=== PATIENT | female | born 1995 | race Caucasian/White ===

== ENCOUNTER 2019-06-08 21:49 | Emergency (ER) | payer OTHER, SELFPAY ==
--- NOTE | ~2019-06-08 | CT_ITS ---
EXAMINATION: CT cervical spine wo con DATE: 06/09/2019 01:52 INDICATION: Neck pain TECHNIQUE: Computed tomography (CT) of the cervical spine was performed without intravenous contrast. The dose-length product (DLP) was 449.68 mGy-cm. Automated exposure control and iterative reconstruc tion technique were employed. COMPARISON: None FINDINGS: There is reversal of the cervical spine which can be positional or due to muscular spasm. T here is no fracture, dislocation, or subluxation. The vertebral body heights, alignment, and interver tebral disc spaces are normal. The paravertebral soft tissues are unremarkable. IMPRESSION: 1. No acute osseous abnormality. Reviewed, dictated and finalized at location A. 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
[2019-06-08 22:05] VITALS: BP 121/75; PULSE 99; RESP 19; TEMP 36.9; O2SAT 100
[2019-06-09 00:50] VITALS: BP 104/65; PULSE 83; RESP 18; O2SAT 100
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
[2019-06-09 02:13] VITALS: BP 106/85; PULSE 76; RESP 12; TEMP 36.8; O2SAT 100
== END 2019-06-09 02:14 | disposition home or self-care (01) ==
PROVIDERS: Emergency Provider Emergency Medicine
DX: S16.1XXA Strain of muscle, fascia and tendon at neck level, initial encounter (principal); K21.9 Gastro-esophageal reflux disease without esophagitis; V47.5XXA Car driver injured in collision with fixed or stationary object in traffic accident, initial encounter
CPT/HCPCS: 72125; 81025; 99284

== ENCOUNTER 2020-07-16 17:18 | Emergency (ER) | payer OTHER, SELFPAY ==
[2020-07-16 17:27] VITALS: BP 126/70; PULSE 112; RESP 16; TEMP 36.8; O2SAT 100
--- NOTE | 2020-07-16 17:28 | ED.WOUNDLAC ---
HPI - Wound/Laceration General Chief Complaint: Wound/Laceration Stated Complaint: laceration to thumb Time Seen by Provider: 07/16/20 17:28 Source: patient and RN notes reviewed Mode of arrival: ambulatory Limitations: no limitations History of Present Illness HPI narrative: 25-year-old female presents to the [facility] with a laceration to the thumb. States that she was using a straight blade when it slipped from after cutting boxes and went to the lateral aspect of left thumb. Bleeding is controlled. Currently washed and dressed. States every time she bends it starts to bleed again. At the mid joints of the thumb. Patient states she thinks she is up-to-date on immunizations including Tdap. Related Data Allergies Allergy/AdvReac Type Severity Reaction Status Date / Time No Known Allergies Allergy Unverified 07/16/20 17:27 Review of Systems Review of Systems: Narrative: CONSTITUTIONAL: Denies fever, chills, or sweats. CARDIOVASCULAR: Denies chest pain, palpitations, or edema. RESPIRATORY: Denies cough or dyspnea. SKIN: Denies rash or itching. Half centimeter laceration lateral aspect left thumb, bleeding controlled. No signs of infection. Happened a couple hours prior to arrival. MUSCULOSKELETAL: Denies back pain, joint pain, or myalgia. NEUROLOGIC: Denies headache, numbness, or weakness. PSYCHIATRIC: Denies anxiety or depression. All other systems reviewed are negative, except as documented in HPI. [facility] Past Medical History Medical History (Updated 07/17/20 @ 00:01 by Kenzie Neal) Bronchitis GERD (gastroesophageal reflux disease) Surgical History Surgical History No significant past surgical history Social History Social History Smoking status: Never smoker Comments At the time of my signature, I reviewed and agree with the nursing past medical, surgical, social, and family history. There is no relevant family history pertinent to the patient complaint. Exam Narrative: Exam Narrative: GENERAL: This is a well-nourished, well-developed patient, in no apparent distress. HEAD: normocephalic, atraumatic. EYES: PERRL. EARS: External ears normal CARDIOVASCULAR: Regular rate and rhythm without murmurs, gallops, or rubs. RESPIRATORY: Clear to auscultation. Breath sounds equal bilaterally. No wheezes, rales, or rhonchi. SKIN: warm, intact with no suspicious lesions or rash, good texture and turgor. 2 and half centimeter laceration lateral aspect left thumb, lateral aspect of joint. Opens with movement and will start bleeding. NEURO: awake, alert, and oriented to person, place and time. There were no obvious focal neurologic abnormalities. EXTREMITIES: No joint tenderness, effusion, or edema noted. No calf tenderness. Negative Homans sign bilaterally. BACK: Nontender without deformity. No CVA tenderness. Course Course Emergency Course: Discussion with patient in regards to closure. If anywhere else on the skin and not over the joint, opens with movements would consider surgical glue or Steri-Strips however with movement patient wound opens starts to bleed a little bit. Vital Signs Vital signs: Vital Signs Temperature 98.2 F 07/16/20 17:27 Pulse Rate 112 H 07/16/20 17:27 Respiratory Rate 16 07/16/20 17:27 Blood Pressure 126/70 07/16/20 17:27 Pulse Oximetry 100 07/16/20 17:27 Temperature 98.2 F 07/16/20 17:27 Pulse Rate 112 H 07/16/20 17:27 Respiratory Rate 16 07/16/20 17:27 Blood Pressure 126/70 07/16/20 17:27 Pulse Oximetry 100 07/16/20 17:27 Reviewed Procedures Laceration Laceration 1: Date: 07/16/20 Time: 18:45 Site: hand Side (If applicable): left Size (cm): 2 Description: linear and clean Depth: simple, single layer Local Anesthetic: lidocaine 1% Amount of anesthesia used (mL): 1.5 Pre-repair: wou
== END 2020-07-16 18:02 | disposition home or self-care (01) ==
PROVIDERS: Emergency Provider Nurse Practitioner
DX: S61.012A Laceration without foreign body of left thumb without damage to nail, initial encounter (principal); W26.8XXA Contact with other sharp object(s), not elsewhere classified, initial encounter; K21.9 Gastro-esophageal reflux disease without esophagitis
CPT/HCPCS: 12001; 99212; G0463

== ENCOUNTER 2020-07-28 13:26 | Emergency (ER) | payer OTHER, SELFPAY ==
--- NOTE | 2020-07-28 13:37 | ED.SKABFB ---
HPI - Skin/Abscess/Foreign Bdy General Chief complaint: Skin/Abscess/Foreign Body Stated complaint: stitches removal Time Seen by Provider: 07/28/20 13:38 Source: patient Mode of arrival: ambulatory Limitations: no limitations History of Present Illness HPI narrative: Yasemin Ortiz is a 25 yo female comes to [facility] for removal of 2 sutures from left that replaced her 12 days ago Related Data Home Medications Medication Instructions Recorded Confirmed No Home Medications 07/28/20 07/28/20 Allergies Allergy/AdvReac Type Severity Reaction Status Date / Time No Known Allergies Allergy Unverified 07/16/20 17:27 Review of Systems Review of Systems: Narrative: CONSTITUTIONAL: Denies fever, chills, sweats. EYES: Denies visual changes, redness, discharge. ENT: Denies rhinorrhea, congestion, sore throat, otalgia. CARDIOVASCULAR: Denies chest pain, palpitations, edema. RESPIRATORY: Denies dyspnea, wheezing, cough GASTROINTESTINAL: Denies abdominal pain, nausea, vomiting, diarrhea. GENITOURINARY: Denies dysuria, hematuria, abnormal discharge SKIN: Denies rash or itching. NEUROLOGIC: Denies numbness, or focal weakness. PSYCHIATRIC: Denies anxiety or depression. PMFSH Past Medical History Medical History Bronchitis GERD (gastroesophageal reflux disease) Surgical History Surgical History No significant past surgical history Social History Social History Smoking status: Never smoker Comments At time of signature, I agree with nursing past medical, surgical, social and family history. There is no relevant family history pertinent to the presenting complaint. Exam Narrative: Exam Narrative: GENERAL: This is a well-nourished, well-developed patient, in mild distress. HEAD: normocephalic, atraumatic. EYES: . Sclera clear/white. Vision is grossly intact. EARS: External ears normal. Hearing grossly intact. NOSE: External nose normal without nasal discharge, nares without redness, no rhinorrhea. THROAT: Mucous membranes moist, NECK: Neck supple, non-tender CARDIOVASCULAR: Regular rate and rhythm without murmurs, gallops, or rubs. RESPIRATORY: Clear to auscultation. Breath sounds equal bilaterally. No wheezes, rales, or rhonchi. GASTROINTESTINAL: Abdomen soft, SKIN: warm, intact with no suspicious lesions or rash, good texture and turgor. Area around fingerlike is well approximated with no swelling or tenderness NEURO: awake, alert, and oriented to person, place and time. There were no obvious focal neurologic abnormalities. Steady gait EXTREMITIES: Normal range of motion. BACK: Nontender without deformity Course Course Emergency Course: Patient here for suture removal of 2 sutures on left medial thumb Thumb well-healed and area well approximated with no induration are edema or tenderness, no drainage Sutures removed without incident Band-Aid applied instructions given to patient Vital Signs Vital signs: Vital Signs Temperature 98.7 F 07/28/20 13:42 Pulse Rate 74 07/28/20 13:42 Respiratory Rate 16 07/28/20 13:42 Blood Pressure 128/70 07/28/20 13:42 Pulse Oximetry 99 07/28/20 13:42 Temperature 98.7 F 07/28/20 13:42 Pulse Rate 74 07/28/20 13:42 Respiratory Rate 16 07/28/20 13:42 Blood Pressure 128/70 07/28/20 13:42 Pulse Oximetry 99 07/28/20 13:42 MDM - Skin/Abscess/Foreign Bdy Differential Diagnosis Differential diagnosis: Likely other (Suture removal) Critical Care Time Critical Care Time Critical Care Time: No Discharge Plan Discharge Clinical Impression: Visit for suture removal Patient Disposition: Home, Self-Care Condition: Stable Instructions: Stitches Removal (ED) Prescriptions: No Action No Home Medications RF: 0 Follow-up/Referrals: UNKNOWN,DOCTOR
[2020-07-28 13:42] VITALS: BP 128/70; PULSE 74; RESP 16; TEMP 37.1; O2SAT 99
== END 2020-07-28 14:09 | disposition home or self-care (01) ==
PROVIDERS: Emergency Provider Nurse Practitioner
DX: Z48.02 Encounter for removal of sutures (principal); K21.9 Gastro-esophageal reflux disease without esophagitis
CPT/HCPCS: 99211; G0463

== ENCOUNTER 2021-03-27 15:36 | Outpatient (CLI) | payer OTHER, SELFPAY ==
--- NOTE | ~2021-03-27 | XR_ITS ---
EXAMINATION: XR chest 2V 03/27/2021 16:14 INDICATION: Shortness of breath. Left-sided nodule. PROCEDURE: 2 view chest COMPARISON: 08/05/2015 FINDINGS: The lungs are clear. The cardiomediastinal silhouette is within normal limits. There are no pleural effusions. There is no pneumothorax suspected. IMPRESSION: 1: NO ACUTE CARDIOPULMONARY DISEASE. Reviewed, dictated and finalized at location A. CHEF
--- NOTE | 2021-03-27 16:13 | ECG_ITS ---
Measurements Intervals [place] Rate: 82 P: 49 FL: 118 QRS: 65 QRSD: 92 T: 56 QT: 342 QTc: 400 Interpretive Statements SINUS RHYTHM WITH SINUS ARRHYTHMIA WITH SHORT FL INTERVAL INCOMPLETE RIGHT BUNDLE BRANCH BLOCK BASELINE ARTIFACT- I, II, III, AVR, AVL, AVF BORDERLINE ECG Electronically Signed On 03-27-2021 16:35:13 [employer] by Neel Cooney D.O.
== END 2021-03-27 15:37 | disposition home or self-care (01) ==
LOC: ANHIMG 15:56
PROVIDERS: PCP Physician Assistant; Visit Provider Physician Assistant
DX: R07.9 Chest pain, unspecified (principal)
CPT/HCPCS: 71046; 93005

== ENCOUNTER 2021-04-06 11:04 | Emergency (ER) | payer OTHER, SELFPAY ==
[2021-04-06 11:17] VITALS: BP 132/77; PULSE 87; RESP 16; TEMP 37.2; O2SAT 98
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
== END 2021-04-06 12:27 | disposition home or self-care (01) ==
PROVIDERS: Emergency Provider Nurse Practitioner
DX: S39.012A Strain of muscle, fascia and tendon of lower back, initial encounter (principal); S13.4XXA Sprain of ligaments of cervical spine, initial encounter; V49.9XXA Car occupant (driver) (passenger) injured in unspecified traffic accident, initial encounter; K21.9 Gastro-esophageal reflux disease without esophagitis
CPT/HCPCS: 99213; G0463

== ENCOUNTER 2021-04-16 01:41 | Emergency (ER) | payer OTHER, SELFPAY ==
[2021-04-16] VITALS (7 sets, daily range): BP systolic 103–131; BP diastolic 71–82; PULSE 94–107; RESP 19–20; TEMP 36.5–36.8; O2SAT 97–100
--- NOTE | ~2021-04-16 | CT_ITS ---
EXAMINATION: CT abdomen pelvis w con EXAM DATE: 04/16/2021 04:33 INDICATION: RLQ pain TECHNIQUE: Spiral CT of the abdomen and pelvis was performed following intravenous injection of 100 m L Omnipaque 350. Axial, coronal and sagittal images of the abdomen and pelvis were reviewed. The do se-length product (DLP) for this examination was 1391.92 mGy-cm. The exposure was tailored according to patient size (auto mA exposure control), and iterative reconstruction (ASIR) was used as addition al dose reduction technique. There is no prior study for comparison. FINDINGS: The liver, spleen, adrenal glands and pancreas are unremarkable. Gallbladder is unremarkab le. No biliary obstruction. Portal and splenic veins are patent. Kidneys enhance symmetrically. T here is no hydronephrosis. The uterus is unremarkable. There is 3.4 cm right adnexal lesion probabl y dominant follicle or a small hemorrhagic cyst. The bladder is unremarkable. There is no retroperi toneal or pelvic lymphadenopathy. The appendix is normal. The stomach and small bowel are unremarkable. There is expected amount of c olonic stool. No free intraperitoneal gas. The heart is normal in size. There are no pericardial or pleural effusions. The lung bases are unremarkable. There are no osteoblastic or osteolytic les ions identified. IMPRESSION: Right ovarian physiologic or hemorrhagic cyst. Reviewed, dictated and finalized at location A. T COORDINATOR
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
[2021-04-16 03:55] LABS: Basophils Percent Auto 0.2 % (0.2-1.2); Eosinophils Percent Auto 0.1 % (0-4.4); Hematocrit 42.1 % (37.0-47.0); Hemoglobin 14.4 g/dL (12.0-15.0); Immature Granulocyte Absolute 0.07 K/mm3 (0.00-0.031); Immature Granulocyte Percent A 0.4 % (0-0.5); Lymphocytes Percent Auto 8.8 % (18.3-44.2); Mean Corpuscular HGB Conc 34.2 g/dl (32-36); Mean Corpuscular Volume 90.5 fl (80-100); Mean Platelet Volume 8.2 fl (7.4-10.4); Monocytes Absolute Auto 0.3 K/mm3 (0.1-0.6); Monocytes Percent Auto 1.9 % (2.6-8.5); Neutrophils Absolute Auto 15.1 K/mm3 (1.3-6.7); Neutrophils Percent Auto 88.6 % (45.5-73.1); Platelet Count Result 287 k/mm3 (150-375); Red Blood Count 4.65 M/mm3 (4.2-5.4); Red Cell Distribution Width 12.2 % (11.5-14.5); White Blood Count 17.1 K/mm3 (4.5-10.0)
[2021-04-16 04:01] LABS: Add Urine Microscopic? YES; Appearance Urine Clear (Clear); Bilirubin Urine Negative (Negative); Blood Urine Negative (Negative); Color Urine Yellow (Yellow); Glucose Urine UA Negative (Negative); Ketones Urine Trace mg/dL (Negative); Leukocyte Esterase Ur Negative LEU/UL (Negative); Mucus Urine Rare /lpf; Nitrate Urine Negative (Negative); Protein Urine Negative (Negative); RBC Urine 0-2 /hpf (0-2); Specific Grav Ur 1.024 (1.001-1.035); Squamous Epithelial Cell Urine Many /hpf (Few); WBC Urine 0-3 /hpf
[2021-04-16 04:06] LABS: Alanine Aminotransferase 33 U/L (4-35); Albumin Level 4.4 g/dL (3.5-5.1); Alkaline Phosphatase 92 U/L (38-126); Anion Gap 8 mmol/L (8-16); Aspartate Amino Transferase 25 U/L (14-36); Bilirubin,Total 0.6 mg/dL (0.2-1.3); Blood Urea Nitrogen 13 mg/dL (7-17); Calcium 8.9 mg/dL (8.4-10.2); Carbon Dioxide 26 mmol/L (22-30); Chloride 99 mmol/L (98-107); Estimated CRCL calculation 122 ml/min; Estimated Glomerular Filt Rate > 60; Glucose 187 mg/dL (65-110); Lipase 44 U/L (23-300); Potassium 4.1 mmol/L (3.4-5.0); Sodium 133 mmol/L (137-145)
[2021-04-16 04:07] LABS: Lactic Acid Reflex 0.9 mmol/L (0.7-2.1)
[2021-04-16] MEDS: fentaNYL CITRATE INJ (*CRX) 100 MCG/2 ML VIAL 50 MCG IV PUSH (04:19)
--- NOTE | 2021-04-16 04:24 | PC.NURSE ---
Patient taken to CT via stretcher.
--- NOTE | 2021-04-16 05:07 | PC.NURSE ---
Patient ambulates to the bathroom with steady unassisted gait.
== END 2021-04-16 06:09 | disposition left against medical advice (07) ==
PROVIDERS: Emergency Provider Emergency Medicine; PCP Physician Assistant
DX: R10.31 Right lower quadrant pain (principal); K21.9 Gastro-esophageal reflux disease without esophagitis
CPT/HCPCS: 36415; 74177; 80053; 81001; 81025; 83605; 83690; 85025; 96374; 99284; J3010; Q9967

== ENCOUNTER 2021-04-16 20:37 | Emergency (ER) | payer OTHER, SELFPAY ==
--- NOTE | ~2021-04-16 | US_ITS ---
EXAMINATION: US pelvic complete w TV DATE: 04/17/2021 01:08 INDICATION: Right lower quadrant abdominal pain. Assess for torsion. TECHNIQUE: Multiple transabdominal and endovaginal sonographic images of the pelvis were obtained. COMPARISON: None. FINDINGS: The uterus measures 7.4 x 3.7 x 3.5 cm. The endometrial complex measures 6 mm in thickness. Small am ount of anechoic fluid measuring up to 1-2 mm thickness extending along the endocervical canal. The r ight ovary measures 4.7 x 3.1 x 3.9 cm and contains a 3.7 cm anechoic cyst. The left ovary measures 2 .9 x 2.0 x 2.4 cm. Vascular flow with both arterial and venous waveforms identified at both ovaries o n color Doppler. There is no free fluid in the pelvis. IMPRESSION: 1. 3.7 cm right ovarian cyst with normal vascular flow to both ovaries. Reviewed, dictated and finalized at location B. F TENDER
[2021-04-16 20:39] VITALS: BP 130/71; PULSE 106; RESP 17; TEMP 37.2; O2SAT 99
--- NOTE | 2021-04-16 22:20 | ED.GENADULT ---
HPI - General Adult General Chief complaint: Abdominal Pain Stated complaint: ABD PAIN Time Seen by Provider: 04/16/21 22:15 Source: patient and RN notes reviewed History of Present Illness HPI narrative: 25-year-old female presenting to the emergency department for evaluation of persistent right lower quadrant abdominal pain. Patient was evaluated in the emergency department yesterday and had a CT scan. Patient was offered a ultrasound to rule out ovarian torsion but patient declined and signed out AMA. Patient did return to the emergency department today due to persistent symptoms. Patient states that she has had persistent right lower quadrant cramping. Patient denies any vaginal bleeding. Patient is on Implanon. Related Data Home Medications Medication Instructions Recorded Confirmed Implanon 04/06/21 Allergies Allergy/AdvReac Type Severity Reaction Status Date / Time No Known Allergies Allergy Verified 04/16/21 23:45 Review of Systems Review of Systems: All systems reviewed & are unremarkable except as noted in HPI and below Constitutional: Constitutional: Reports no additional constitutional complaints Eyes: Eyes: Reports no additional eye complaints ENT: Reports system reviewed and no additional complaints, except as documented Cardiovascular: Cardiovascular: Reports no additional cardiovascular complaints Respiratory: Respiratory: Reports no additional respiratory complaints Gastrointestinal: Gastrointestinal: Reports abdominal pain (RLQ) Genitourinary: Genitourinary: Reports no additional female genitourinary complaints Musculoskeletal: Musculoskeletal: Reports no additional musculoskeletal complaints Integumentary/Breasts: Skin/Breast: Reports system reviewed and no additional complaints, except as docu Neurologic: Reports system reviewed and no additional complaints, except as documented Psychiatric: Psychiatric: Reports no additional psychiatric complaints Endocrine: Endocrine: Reports no additional endocrine complaints Hematologic/Lymphatic: Hematologic/Lymphatic: Reports no additional hematologic/lymphatic complaints Allergic/Immunologic: Allergic/Immunologic: Reports no additional allergic/immunologic complaints [facility] Past Medical History Medical History Bronchitis GERD (gastroesophageal reflux disease) Surgical History Surgical History No significant past surgical history Family History Family History (Updated 04/06/21 @ 12:21 by FRANCISCA Scott) Other Family history non-contributory Social History Social History Smoking status: Never smoker Exam Const: General: healthy appearing, no acute distress and alert Nutritional Appearance: well nourished Orientation/consciousness: patient oriented x3 Limitations: altered mental status HENMT: Head: normal to inspection Eyes: Pupils: Equal, round and reactive pupils present Neck: Neck: normal visual inspection Chest: Chest palpation & inspection: normal inspection of the chest and no tenderness Resp: Effort & Inspection: normal respiratory effort Auscultation: clear to auscultation bilaterally Cardio: Rate: regular rate Rhythm: regular rhythm GI: GI Palp: Yes Tenderness to palpation present (GI) (RLQ), No Guarding due to palpation present (GI) and No Palpable mass present Percussion: Yes normal to percussion Auscultation: normal bowel sounds : General: Yes no CVA tenderness Back/Spine/Pelvis: Back: no CVA tenderness Skin: General skin exam: normal color Rashes: no rashes Wounds: no wounds Neuro: General: patient oriented x3, moves all extremities and no focal motor deficits Cranial nerves: Yes Equal, round and reactive pupils present Extrem: General: normal to inspection and no pedal edema Psych: Mental Status: m
[2021-04-16 22:39] LABS: Basophils Percent Auto 0.2 % (0.2-1.2); Eosinophils Absolute Auto 0.1 K/mm3 (0-0.3); Eosinophils Percent Auto 1.5 % (0-4.4); Hematocrit 42.6 % (37.0-47.0); Hemoglobin 14.4 g/dL (12.0-15.0); Immature Granulocyte Absolute 0.02 K/mm3 (0.00-0.031); Immature Granulocyte Percent A 0.2 % (0-0.5); Lymphocytes Absolute Auto 2.69 K/mm3 (0.9-3.2); Lymphocytes Percent Auto 31.2 % (18.3-44.2); Mean Corpuscular HGB Conc 33.8 g/dl (32-36); Mean Corpuscular Hemoglobin 31.2 pg (26-34); Mean Corpuscular Volume 92.2 fl (80-100); Mean Platelet Volume 8.3 fl (7.4-10.4); Monocytes Absolute Auto 0.5 K/mm3 (0.1-0.6); Monocytes Percent Auto 5.6 % (2.6-8.5); Neutrophils Absolute Auto 5.3 K/mm3 (1.3-6.7); Neutrophils Percent Auto 61.3 % (45.5-73.1); Platelet Count Result 296 k/mm3 (150-375); Red Blood Count 4.62 M/mm3 (4.2-5.4); Red Cell Distribution Width 12.3 % (11.5-14.5); White Blood Count 8.6 K/mm3 (4.5-10.0)
[2021-04-16 22:49] LABS: Alanine Aminotransferase 27 U/L (4-35); Albumin Level 4.3 g/dL (3.5-5.1); Alkaline Phosphatase 85 U/L (38-126); Anion Gap 10 mmol/L (8-16); Aspartate Amino Transferase 28 U/L (14-36); Bilirubin,Total 0.5 mg/dL (0.2-1.3); Blood Urea Nitrogen 19 mg/dL (7-17); Carbon Dioxide 27 mmol/L (22-30); Chloride 99 mmol/L (98-107); Estimated CRCL calculation 110 ml/min; Estimated Glomerular Filt Rate > 60; Glucose 109 mg/dL (65-110); Potassium 4.3 mmol/L (3.4-5.0); Sodium 136 mmol/L (137-145)
--- NOTE | 2021-04-16 23:39 | PC.NURSE ---
Preparing to call U/S in for exam to r/o torsion.
[2021-04-16 23:44] VITALS: BP 137/91; PULSE 84; RESP 16; O2SAT 99
[2021-04-17 01:05] VITALS: BP 144/88; PULSE 76; RESP 18; O2SAT 99
--- NOTE | 2021-04-17 01:08 | PC.NURSE ---
Pt has returned from US. Made aware of pending results. Denies needs at present time.
[2021-04-17 02:55] VITALS: BP 144/87; PULSE 88; RESP 16; O2SAT 98
== END 2021-04-17 03:27 | disposition home or self-care (01) ==
PROVIDERS: Emergency Provider Emergency Medicine; PCP Physician Assistant
DX: N83.201 Unspecified ovarian cyst, right side (principal); K21.9 Gastro-esophageal reflux disease without esophagitis
CPT/HCPCS: 36415; 74177; 76830; 76856; 80053; 81001; 81025; 83605; 83690; 85025; 96374; 99284; J3010; Q9967

== ENCOUNTER 2021-04-24 09:51 | Outpatient (CLI) | payer OTHER, SELFPAY ==
--- NOTE | 2021-04-24 | ECHO_ITS ---
Patient Info Name: Yasemin Ortiz Age: 25 years : 1995 Gender: Female Ht: 68 in Wt: 250 lbs BSA: 2.38 m2 HR: 83 bpm BP: 132 / 88 mmHg Heart Rhythm: Sinus Rhythm Technical Quality: Good Exam Date: 04/24/2021 10:32 AM Exam Location: [facility] Patient Status: Outpatient Admit Date: 04/24/2021 Staff Ordering Physician: AlfonsoCristiana Fishing Rod Trimmer: Fannie Trotter RDCS Attending Provider: Alfonso, Cristiana RIVERS Referring Physician: Alfonso LOPEZ; Exam Type: CA echo doppler color flow Study Info Indications R06.09 - Other forms of dyspnea Complete two-dimensional, color flow and Doppler transthoracic echocardiogram is performed. Summary 1. Complete two-dimensional, color flow and Doppler transthoracic echocardiogram is performed. 2. Normal echocardiogram. Left Ventricle Left ventricular chamber dimension is normal. Left ventricular systolic function is normal, estimated at Empty. The left ventricular diastolic function is normal. Right Ventricle Right ventricular chamber dimension is normal. Left Atria Left atrial chamber dimension is normal. Right Atria Right atrial chamber dimension is normal. Aortic Valve The aortic valve is normal. Pulmonic Valve The pulmonic valve is normal. Mitral Valve The mitral valve has normal leaflets. Tricuspid Valve The tricuspid valve leaflets are normal. Pericardium/Pleural The pericardium appears normal. Aorta The aortic root size at the sinus of Valsalva is normal. Left Ventricular Outflow Tract Name Value Normal LVOT 2D LVOT Diameter 2.1 cm LVOT Doppler LVOT Peak Gradient 3 mmHg LVOT Mean Gradient 2 mmHg LVOT VTI 19 cm LVOT VTI/AV VTI Ratio 0.8 LVOT Stroke Volume 66 ml LVOT CO 5.2 l/min LVOT CI 2.2 l/min/m2 Pulmonic Valve Name Value Normal RVOT Doppler RVOT Peak Gradient 3 mmHg PV Doppler PV Peak Gradient 3 mmHg Mitral Valve Name Value Normal MV Doppler MV Decel [place] 754 cm/s2 MV PHT 45 ms MV Area (PHT) 4.9 cm2 4.0-5.0 MV Diastolic Function MV E Peak Velocity 117 cm/s MV A Peak Ve
== END 2021-04-24 09:52 | disposition home or self-care (01) ==
LOC: ANHCARD 09:53
PROVIDERS: PCP Physician Assistant; Visit Provider Physician Assistant
DX: R06.09 Other forms of dyspnea (principal)
CPT/HCPCS: 93306

== ENCOUNTER 2021-07-23 18:18 | Emergency (ER) | payer OTHER, SELFPAY ==
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
[2021-07-23 18:25] VITALS: BP 118/56; PULSE 105; RESP 16; TEMP 36.4; O2SAT 100
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
[2021-07-23 20:43] VITALS: BP 123/94; PULSE 78; RESP 16; O2SAT 100
== END 2021-07-23 20:44 | disposition home or self-care (01) ==
PROVIDERS: Emergency Provider Nurse Practitioner Family; PCP Physician Assistant
DX: G44.319 Acute post-traumatic headache, not intractable (principal); F07.81 Postconcussional syndrome; K21.9 Gastro-esophageal reflux disease without esophagitis
CPT/HCPCS: 70450; 72125; 99284

== ENCOUNTER 2021-12-27 06:21 | Emergency (ER) | payer OTHER, SELFPAY ==
--- NOTE | ~2021-12-27 | XR_ITS ---
EXAMINATION: XR chest 2V DATE: 12/27/2021 07:24 INDICATION: Left-sided chest pain. Irregular heart rate. TECHNIQUE: PA and lateral views of the chest were obtained. COMPARISON: 03/27/2021 FINDINGS: The lungs are clear with no focal airspace opacities, pulmonary edema, pleural effusion or pneumothor ax. The cardiomediastinal silhouette is normal. Visualized bones and soft tissues are unremarkable. IMPRESSION: 1. No acute cardiopulmonary disease. Reviewed, dictated and finalized at location A.
[2021-12-27 06:42] VITALS: BP 100/76; PULSE 80; RESP 16; TEMP 37.3; O2SAT 98
--- NOTE | 2021-12-27 06:42 | ECG_ITS ---
Measurements Intervals [place] Rate: 69 P: 21 [place]: 140 QRS: 37 QRSD: 93 T: 23 QT: 369 QTc: 396 Interpretive Statements SINUS RHYTHM INCOMPLETE RIGHT BUNDLE BRANCH BLOCK BORDERLINE ECG COMPARED TO ECG 03/27/2021 16:20:19 NO SIGNIFICANT CHANGES Electronically Signed On 12-27-2021 7:53:21 CDT by Neel Cooney D.O.
[2021-12-27 06:57] LABS: Basophils Percent Auto 0.6 % (0.2-1.2); Eosinophils Absolute Auto 0.1 K/mm3 (0-0.3); Eosinophils Percent Auto 1.2 % (0-4.4); Hematocrit 46.1 % (37.0-47.0); Hemoglobin 14.8 g/dL (12.0-15.0); Immature Granulocyte Absolute 0.02 K/mm3 (0.00-0.031); Immature Granulocyte Percent A 0.3 % (0-0.5); Lymphocytes Absolute Auto 2.13 K/mm3 (0.9-3.2); Lymphocytes Percent Auto 30.6 % (18.3-44.2); Mean Corpuscular HGB Conc 32.1 g/dl (32-36); Mean Corpuscular Hemoglobin 31.3 pg (26-34); Mean Corpuscular Volume 97.5 fl (80-100); Mean Platelet Volume 9.8 fl (7.4-10.4); Monocytes Absolute Auto 0.4 K/mm3 (0.1-0.6); Neutrophils Absolute Auto 4.3 K/mm3 (1.3-6.7); Neutrophils Percent Auto 61.3 % (45.5-73.1); Platelet Count Result 331 k/mm3 (150-375); Red Blood Count 4.73 M/mm3 (4.2-5.4); Red Cell Distribution Width 12.8 % (11.5-14.5)
[2021-12-27] MEDS: ASPIRIN 81 MG CHEWABLE TABLET 324 MG PO (07:02)
[2021-12-27 07:11] LABS: INR 1.1; Prothrombin Time 13.5 Seconds (11.1-14.7)
--- NOTE | 2021-12-27 07:11 | PC.NURSE ---
Report given to Daniela GUEVARA
[2021-12-27 07:15] VITALS: BP 114/82; PULSE 75; RESP 16; O2SAT 100
[2021-12-27 07:24] LABS: Partial Thromboplastin Time 25.9 SECONDS (22.3-36.8)
--- NOTE | 2021-12-27 07:46 | ED.GENADULT ---
HPI - General Adult General Chief complaint: Chest Pain Stated complaint: intermittent chest pain Time Seen by Provider: 12/27/21 07:03 History of Present Illness HPI narrative: 26-year-old female with past medical history of PCOS presents to our department for chest pain . Pain comes in twinges of sharp and severe pain which is felt in the left axillary line and radiates across anterior chest wall. There are no aggravating or alleviating factors. She has been experiencing the symptoms on and off for the past 2 weeks. There is no exertional component, shortness of breath, diaphoresis. She generally feels the pain when she is laying down. No familial history of early cardiac . Related Data Home Medications Medication Instructions Recorded Confirmed Implanon 04/06/21 Allergies Allergy/AdvReac Type Severity Reaction Status Date / Time No Known Allergies Allergy Verified 12/27/21 06:42 Review of Systems Review of Systems: CONSTITUTIONAL: Denies fever, chills, or sweats. EYES: Denies visual changes, redness, or discharge. ENT: Denies rhinorrhea, congestion, sore throat, or otalgia. CARDIOVASCULAR: Denies chest pain, palpitations, or edema. RESPIRATORY: Denies cough or dyspnea. GASTROINTESTINAL: Denies abdominal pain, nausea, vomiting, or diarrhea. GENITOURINARY: Denies dysuria or hematuria. SKIN: Denies rash or itching. MUSCULOSKELETAL: Denies back pain, joint pain, or myalgia. NEUROLOGIC: Denies headache, numbness, or weakness. PSYCHIATRIC: Denies anxiety or depression. [facility] Past Medical History Medical History Bronchitis GERD (gastroesophageal reflux disease) Surgical History Surgical History No significant past surgical history Family History Family History Other Family history non-contributory Social History Social History Smoking status: Never smoker Exam Narrative: GENERAL: Well-appearing, well-nourished, and in no acute distress. HEAD: Normocephalic, atraumatic. EYES: PERRLA and EOMI. ENT: Nares clear, no rhinorrhea or epistaxis. Mucous membranes moist. NECK: Supple. CHEST: Clear to auscultation. No respiratory distress. HEART: Regular rate and rhythm. No murmur heard. Normal peripheral pulses. ABDOMEN: Soft, nontender, nondistended, normal active bowel sounds. EXTREMITIES: Normal range of motion. No edema. SKIN: Warm, dry, no rash. NEURO: No focal deficits. Alert and oriented x3. PSYCH: Normal mood and affect. Course Vital Signs Vital signs: Vital Signs Temperature 99.1 F 12/27/21 06:42 Pulse Rate 80 12/27/21 06:42 Respiratory Rate 16 12/27/21 06:42 Blood Pressure 100/76 12/27/21 06:42 Pulse Oximetry 98 12/27/21 06:42 Oxygen Delivery Room Air 12/27/21 06:42 Temperature 99.1 F 12/27/21 06:42 Pulse Rate 79 12/27/21 09:48 Respiratory Rate 16 12/27/21 09:48 Blood Pressure 127/78 12/27/21 09:48 Pulse Oximetry 100 12/27/21 09:48 Oxygen Delivery Room Air 12/27/21 06:42 Medical Decision Making Vital Signs Vital Signs: Vital Signs Temperature 99.1 F 12/27/21 06:42 Pulse Rate 80 12/27/21 06:42 Respiratory Rate 16 12/27/21 06:42 Blood Pressure 100/76 12/27/21 06:42 Pulse Oximetry 98 12/27/21 06:42 Oxygen Delivery Room Air 12/27/21 06:42 Temperature 99.1 F 12/27/21 06:42 Pulse Rate 79 12/27/21 09:48 Respiratory Rate 16 12/27/21 09:48 Blood Pressure 127/78 12/27/21 09:48 Pulse Oximetry 100 12/27/21 09:48 Oxygen Delivery Room Air 12/27/21 06:42 Lab Data Result diagrams: 12/27/21 06:52 12/27/21 07:38 Labs: Lab Results 12/27/21 12/27/21 12/27/21 Range/Units 06:52 06:52 07:38 WBC 7.0 (4.5-10.0) K/mm3 RBC 4.73 (4.
[2021-12-27 08:04] LABS: Alanine Aminotransferase 28 U/L (6-35); Albumin Level 4.6 g/dL (3.5-5.1); Alkaline Phosphatase 72 U/L (38-126); Anion Gap 13 mmol/L (8-16); Aspartate Amino Transferase 27 U/L (14-36); Bilirubin,Total 0.9 mg/dL (0.2-1.3); Blood Urea Nitrogen 15 mg/dL (7-17); Calcium 8.7 mg/dL (8.4-10.2); Carbon Dioxide 24 mmol/L (22-30); Chloride 102 mmol/L (98-107); Estimated CRCL calculation 121 ml/min; Estimated Glomerular Filt Rate > 60; Glucose 108 mg/dL (65-110); Lipase 57 U/L (23-300); Potassium 4.4 mmol/L (3.4-5.0); Sodium 139 mmol/L (137-145)
[2021-12-27 08:15] LABS: Troponin I < 0.012 ng/mL (0.000-0.034)
[2021-12-27 09:48] VITALS: BP 127/78; PULSE 79; RESP 16; O2SAT 100
== END 2021-12-27 09:50 | disposition home or self-care (01) ==
PROVIDERS: Preventive Medicine Aerospace Medicine; Emergency Provider Emergency Medicine; PCP Physician Assistant
DX: R07.89 Other chest pain (principal); K21.9 Gastro-esophageal reflux disease without esophagitis; I45.10 Unspecified right bundle-branch block
CPT/HCPCS: 36415; 71046; 80053; 83690; 84484; 85025; 85610; 85730; 93005; 99284; A9270

== ENCOUNTER 2022-08-29 17:43 | Emergency (ER) | payer OTHER, SELFPAY ==
--- NOTE | 2022-08-29 17:46 | ED.SOB ---
HPI - SOB/Dyspnea General Chief Complaint: Upper Respiratory Infection Stated Complaint: SOB Time Seen by Provider: 08/29/22 17:46 Source: patient Mode of arrival: ambulatory Limitations: no limitations History of Present Illness HPI Narrative: Yasemin is a 27-year-old female patient presenting to the clinic today with complaints of nasal congestion, sinus pressure, and congested ears times 2-3 days. She denies any known fever or chills. Has taken several COVID test at home and they were all negative. Related Data Allergies Allergy/AdvReac Type Severity Reaction Status Date / Time No Known Allergies Allergy Verified 08/29/22 17:53 Review of Systems Review of Systems: Pertinent positives per HPI. Patient denies any fever, chills, rash, headache, visual changes, dizziness, chest pain, palpitations, nausea, vomiting, diarrhea, constipation, abdominal pain, or any urinary issues. [facility] Past Medical History Medical History Bronchitis GERD (gastroesophageal reflux disease) Surgical History Surgical History No significant past surgical history Family History Family History Other Family history non-contributory Social History Social History Smoking status: Never smoker Comments At the time of my signature, I reviewed and agree with the nursing past medical, surgical, social, and family history. There is no relevant family history pertinent to the patient complaint. Exam Narrative: General: Well-developed, morbidly obese, in no apparent distress Head: Normocephalic, atraumatic Eyes: Pupils equally round and reactive to light bilaterally, EOM intact, sclera and conjunctive clear, no discharge, lids normal Ears: TMs intact and congested, ear canals clear, no drainage, grossly hearing normal. Nose: Nares patent, clear nasal discharge, no inflammation, no sinus tenderness. Mouth: Oral pharynx without lesions or masses, good dentition, MMM. Postnasal drip Neck: Supple, trachea midline, no enlargement of anterior or posterior cervical nodes, no thyroid masses or goiter palpable. Cardio: Regular rate and rhythm, s1 and s2 normal, no murmur appreciated. Resp: Clear to auscultation bilaterally, no rhonchi, rales, wheezing or rubs Course Course Emergency Course: Portions of this record may have been created with voice recognition software. Level of Care: Express Care Visit Vital Signs Vital signs: Vital signs reviewed MDM - SOB/Dyspnea MDM Narrative Medical decision making narrative: At the time of visit patient is resting on the exam table. I suspect patient has an upper respiratory infection/eustachian tube dysfunction. Will send in prescription for prednisone. Supportive measures were discussed with the patient she voiced understanding of discharge instructions and agrees to treatment plan. Differential Diagnosis Differential diagnosis: Likely other (Upper respiratory infection, bronchitis, asthma, sinusitis, COVID, influenza, viral syndrome) Discharge Plan Discharge Clinical Impression: Acute upper respiratory infection, Acute dysfunction of both eustachian tubes Patient Disposition: Home, Self-Care Condition: Stable Instructions: Antibiotic Form, Upper Respiratory Infection (ED), Earache (ED), Postnasal Drip (DC) Additional Instructions: Take prescription medications only as prescribed-prednisone Increase fluids and stay well hydrated Tylenol/motrin for pain/fever Flonase and OTC antihistamines as directed Vicks vapor rub to open sinuses Sinus rinses for congestion Cepacol spray, cough drops, throat lozenges, warm tea with honey/lemon, gargle salt water to soothe throat BRAT diet for diarrhea Clear liquids x 24 hours the
[2022-08-29 17:54] VITALS: BP 116/77; PULSE 102; RESP 20; TEMP 36.9; O2SAT 99
== END 2022-08-29 18:06 | disposition home or self-care (01) ==
PROVIDERS: Emergency Provider Nurse Practitioner Family; PCP Family Medicine
DX: J06.9 Acute upper respiratory infection, unspecified (principal); H69.93 Unspecified Eustachian tube disorder, bilateral; K21.9 Gastro-esophageal reflux disease without esophagitis
CPT/HCPCS: 99213; G0463

== ENCOUNTER 2022-09-23 19:33 | Emergency (ER) | payer OTHER, SELFPAY ==
--- NOTE | ~2022-09-23 | XR_ITS ---
XR abdomen obstructive series DATE: 09/23/2022 20:03 INDICATION: Sharp left upper quadrant abdominal pain TECHNIQUE: Supine and upright AP views of the abdomen COMPARISON: None FINDINGS: The lung bases appear clear. Heart size appears normal. No pleural effusion or pneumoperito neum is evident. The psoas shadows are intact. No visceromegaly is evident. No significant abnormal calcification is n oted. There is a prominent amount of fecal material in the ascending colon and to a lesser extent descendin g colon but no bowel obstruction is detected. Included skeletal structures are unremarkable. IMPRESSION: No significant abnormality Reviewed, dictated and finalized at [facility]. Reviewed, dictated and finalized at [facility]. IMPRESSION: No significant abnormality
--- NOTE | 2022-09-23 19:38 | ED.ABDPAIN ---
HPI - Abdominal Pain General Chief Complaint: Abdominal Pain Stated Complaint: Abdominal Pain Time Seen by Provider: 09/23/22 19:39 Source: patient Mode of arrival: ambulatory Limitations: no limitations History of Present Illness HPI narrative: Yasemin is a 27-year-old female patient presenting to clinic today with complaints of generalized abdominal pain that started around 430 this afternoon. Reports that she is also having some nausea with this. No vomiting or diarrhea. No blood in her stool. Last bowel movement was 1 hour prior to arrival. Started her menses earlier this week but only had 2 days which is not normal for her. She denies any fever or chills. Pain is sharp in nature rating it currently as 6/10. States that the pain gets worse with coughing and sneezing. Denies any vaginal discharge, urinary symptoms, or risk for sexually transmitted infection. History of ovarian cyst Related Data Home Medications Medication Instructions Recorded Confirmed No Home Medications 09/23/22 09/23/22 Allergies Allergy/AdvReac Type Severity Reaction Status Date / Time No Known Allergies Allergy Verified 08/29/22 17:53 Review of Systems Review of Systems: Pertinent positives per HPI. Patient denies any fever, chills, rash, headache, visual changes, dizziness, cough, runny nose, sore throat, shortness of breath, chest pain, palpitations, vomiting, diarrhea, constipation, or any urinary issues. PMFSH Past Medical History Medical History Bronchitis GERD (gastroesophageal reflux disease) Surgical History Surgical History No significant past surgical history Family History Family History Other Family history non-contributory Social History Social History Smoking status: Never smoker Comments At the time of my signature, I reviewed and agree with the nursing past medical, surgical, social, and family history. There is no relevant family history pertinent to the patient complaint. Exam Narrative: General: Well-developed, well nourished, in no apparent distress. Head: Normocephalic, atraumatic. Cardio: Regular rate and rhythm, s1 and s2 normal, no murmur appreciated. Resp: Clear to auscultation bilaterally, no rhonchi, rales, wheezing or rubs. Abdomen: Soft, pliable, bowel sounds present in all quadrants, generalized tender to palpation over the abdomen however it is more exquisite in the left upper and mid abdominal regions, no organomegly, no CVAT tenderness. Course Course Emergency Course: Portions of this record may have been created with voice recognition software. Level of Care: Express Care Visit Vital Signs Vital signs: Vital signs reviewed MDM - Abdominal Pain MDM Narrative Medical decision making narrative: At the time of visit patient is resting comfortably on exam table. Urinalysis and urine preg test was performed and were negative in the clinic today. X-ray of the abdomen was completed and shows significant amount of stool in the ascending coli and lesser amount and the descending colon. Likely constipation. Supportive measures were discussed with the patient she voiced understanding discharge instructions and agrees to treatment plan. Recommend if the symptoms worsen to go to the emergency room or follow-up with her PCP in the morning. Differential Diagnosis Differential diagnosis: Likely abdominal pain, acute appendicitis, calculus of kidney, constipation, diverticulitis, gastroenteritis, pancreatitis, small bowel obstruction and other (Ovarian cyst) Discharge Plan Discharge Clinical Impression: Acute generalized abdominal pain, Nausea Patient Disposition: Home, Self-Care Condition: Stable Instructions: Antibiotic Form,
[2022-09-23 19:42] VITALS: BP 128/95; PULSE 93; RESP 20; TEMP 36.9; O2SAT 100
== END 2022-09-23 20:35 | disposition home or self-care (01) ==
PROVIDERS: Emergency Provider Nurse Practitioner Family; PCP Family Medicine
DX: R10.84 Generalized abdominal pain (principal); R11.0 Nausea; K21.9 Gastro-esophageal reflux disease without esophagitis
CPT/HCPCS: 74019; 81003; 81025; 99213; G0463

== ENCOUNTER 2022-09-23 20:50 | Observation (INO) | payer OTHER, SELFPAY ==
--- NOTE | ~2022-09-23 | CT_ITS ---
EXAMINATION: CT abdomen pelvis w con INDICATION: Abdominal pain TECHNIQUE: Computed tomographic images of the abdomen and pelvis were obtained after the administrati on of 100 cc of Omnipaque 350 intravenous contrast. The dose-length product (DLP) was 1310.28 mGy-cm. Automated exposure control and iterative reconstruction technique were employed. COMPARISON: 04/16/2021 FINDINGS: Minimal dependent atelectasis is present in the lung bases. The heart size is normal. The l iver is diffusely low in attenuation when compared with the spleen, consistent with hepatic steatosis . The spleen, pancreas, gallbladder, and adrenal glands are normal. The kidneys are unremarkable. No pathologically enlarged abdominal or pelvic lymph nodes are identified. No free intraperitoneal gas o r evidence of bowel obstruction. The dilated appendix measures up to 9 mm. There is edematous strandi ng of the periappendiceal fat. There is no evidence of periappendiceal abscess or perforation. IMPRESSION: 1. Uncomplicated acute appendicitis. Reviewed, dictated and finalized at [facility].
[2022-09-23 21:13] VITALS: BP 135/87; PULSE 85; RESP 18; TEMP 36.6; O2SAT 100
[2022-09-23 22:02] LABS: Basophils Percent Auto 0.3 % (0.2-1.2); Eosinophils Absolute Auto 0.1 K/mm3 (0-0.3); Eosinophils Percent Auto 0.8 % (0-4.4); Hemoglobin 14.7 g/dL (12.0-15.0); Immature Granulocyte Absolute 0.03 K/mm3 (0.00-0.031); Immature Granulocyte Percent A 0.2 % (0-0.5); Lymphocytes Absolute Auto 2.77 K/mm3 (0.9-3.2); Lymphocytes Percent Auto 19.8 % (18.3-44.2); Mean Corpuscular HGB Conc 33.4 g/dl (32-36); Mean Corpuscular Hemoglobin 31.2 pg (26-34); Mean Corpuscular Volume 93.4 fl (80-100); Mean Platelet Volume 9.1 fl (7.4-10.4); Monocytes Absolute Auto 0.6 K/mm3 (0.1-0.6); Monocytes Percent Auto 4.1 % (2.6-8.5); Neutrophils Absolute Auto 10.5 K/mm3 (1.3-6.7); Neutrophils Percent Auto 74.8 % (45.5-73.1); Platelet Count Result 299 k/mm3 (150-375); Red Blood Count 4.71 M/mm3 (4.2-5.4); Red Cell Distribution Width 12.4 % (11.5-14.5)
--- NOTE | 2022-09-23 22:02 | PC.NURSE ---
Pt reports getting XR and urine sample at
[2022-09-23 22:13] LABS: Alanine Aminotransferase 29 U/L (6-35); Albumin Level 4.5 g/dL (3.5-5.1); Alkaline Phosphatase 92 U/L (38-126); Anion Gap 6 mmol/L (8-16); Aspartate Amino Transferase 26 U/L (14-36); Bilirubin,Total 0.4 mg/dL (0.2-1.3); Blood Urea Nitrogen 13 mg/dL (7-17); Calcium 8.9 mg/dL (8.4-10.2); Carbon Dioxide 29 mmol/L (22-30); Chloride 99 mmol/L (98-107); Estimated CRCL calculation 123 ml/min; Estimated Glomerular Filt Rate > 60; Glucose 91 mg/dL (65-110); Lipase 64 U/L (23-300); Potassium 4.1 mmol/L (3.4-5.0); Sodium 134 mmol/L (137-145)
[2022-09-23] MEDS: MORPHINE SULFATE (*CRX) 4 MG/ML INJ IV PUSH (23:36)
[2022-09-23] MEDS: SODIUM CHLORIDE 0.9% IV 1,000 ML 999 ML IV CONT (23:37)
[2022-09-23] MEDS: ONDANSETRON INJ 4 MG/2 ML VIAL IV PUSH (23:37)
[2022-09-23 23:56] VITALS: BP 128/86; PULSE 82; RESP 16; O2SAT 98
[2022-09-24] VITALS (13 sets, daily range): BP systolic 96–131; BP diastolic 44–80; PULSE 76–108; RESP 14–20; TEMP 35.8–36.6; O2SAT 97–100; BMI 38.8
[2022-09-24 00:06] LABS: Appearance Urine Clear (Clear); Bilirubin Urine Negative (Negative); Blood Urine Negative (Negative); Color Urine Yellow (Yellow); Glucose Urine UA Negative (Negative); Ketones Urine Negative (Negative); Leukocyte Esterase Ur Negative LEU/UL (Negative); Nitrate Urine Negative (Negative); Protein Urine Negative (Negative); Specific Grav Ur 1.015 (1.001-1.035); Urobilinogen Urine 0.2 mg/dL (<2.0)
[2022-09-24 00:07] LABS: Add Urine Microscopic? NO
--- NOTE | 2022-09-24 00:33 | ED.GENADULT ---
HPI - General Adult General Chief complaint: Abdominal Pain Stated complaint: abd pain Time Seen by Provider: 09/23/22 23:14 History of Present Illness HPI narrative: Patient is a 27-year-old female who presents the emergency department with chief complaint of abdominal pain. Patient reports around 430 today she started having pain in her abdomen. Patient reports the pain is in the lower quadrants of her abdomen reports that its worsened by movement and improved with rest. Patient reports no nausea no vomiting no diarrhea no vaginal bleeding no vaginal discharge denies dysuria. Related Data Home Medications Medication Instructions Recorded Confirmed No Home Medications 09/23/22 09/23/22 Allergies Allergy/AdvReac Type Severity Reaction Status Date / Time No Known Allergies Allergy Verified 09/23/22 23:08 Review of Systems Review of Systems: A 10 system review of systems was completed on the patient and is negative except for what is stated in the HPI. Nursing and ancillary documentation was reviewed. PMFSH Past Medical History Medical History Bronchitis GERD (gastroesophageal reflux disease) Surgical History Surgical History No significant past surgical history Family History Family History Other Family history non-contributory Social History Social History Smoking status: Never smoker Exam Narrative: GENERAL: Well-appearing, well-nourished, and in no acute distress. HEAD: Normocephalic, atraumatic. EYES: PERRLA and EOMI. ENT: Nares clear, no rhinorrhea or epistaxis. Mucous membranes moist. NECK: Supple. CHEST: Clear to auscultation. No respiratory distress. HEART: Regular rate and rhythm. No murmur heard. Normal peripheral pulses. ABDOMEN: Soft, diffuse tenderness to palpation, nondistended, normal active bowel sounds. EXTREMITIES: Normal range of motion. No edema. SKIN: Warm, dry, no rash. NEURO: No focal deficits. Alert and oriented x3. PSYCH: Normal mood and affect. Course Vital Signs Vital signs: Vital Signs Temperature 36.6 C 09/23/22 21:13 Pulse Rate 85 09/23/22 21:13 Respiratory Rate 18 09/23/22 21:13 Blood Pressure 135/87 09/23/22 21:13 Pulse Oximetry 100 09/23/22 21:13 Oxygen Delivery Room Air 09/23/22 21:13 Temperature 36.6 C 09/23/22 21:13 Pulse Rate 108 H 09/24/22 03:16 Respiratory Rate 15 09/24/22 03:16 Blood Pressure 102/67 09/24/22 03:16 Pulse Oximetry 98 09/24/22 03:16 Oxygen Delivery Room Air 09/23/22 21:13 Medical Decision Making MDM Narrative Medical decision making narrative: Differential diagnosis includes acute appendicitis, colitis, generalized abdominal pain, gastritis Laboratory studies were obtained and showed a white count of 14,000 electrolytes are within normal limits liver enzymes are normal urinalysis showed no evidence of UTI CT scan of the abdomen pelvis showed a appendix of 10 mm with surrounding fat stranding Case was discussed with Dr. Stewart who will admit the patient and plan for appendectomy Vital Signs Vital Signs: Vital Signs Temperature 36.6 C 09/23/22 21:13 Pulse Rate 85 09/23/22 21:13 Respiratory Rate 18 09/23/22 21:13 Blood Pressure 135/87 09/23/22 21:13 Pulse Oximetry 100 09/23/22 21:13 Oxygen Delivery Room Air 09/23/22 21:13 Temperature 36.6 C 09/23/22 21:13 Pulse Rate 108 H 09/24/22 03:16 Respiratory Rate 15 09/24/22 03:16 Blood Pressure 102/67 09/24/22 03:16 Pulse Oximetry 98 09/24/22 03:16 Oxygen Delivery Room Air 09/23/22 21:13 Lab Data 09/23/22 21:47 09/23/22 21:47 Labs: Lab Results 09/23/22 09/24/22 Range/Units 21:47 00:00 W
[2022-09-24] MEDS: MORPHINE SULFATE (*CRX) 4 MG/ML INJ IV PUSH ×2 (02:53→08:57)
[2022-09-24] MEDS: PIPERACILLN/TAZ 3.375GM/NS50ML 3.375 GM/50 ML BAG IVPB ×3 (03:18→15:41)
--- NOTE | 2022-09-24 04:09 | ADMGEN ---
This patient, Yasemin Ortiz, was admitted to [facility] Room 327-01. Patient/family oriented to hospital policies and general routines including ID bracelet, bed and alarms, visiting hours, pain management, procedures, bathroom and other care routines, personal items, smoking policy, room service/diet, and visiting hours. Information on how to activate the Rapid Response Team has been discussed. Patient/Family are encouraged to report perceived risks to care and to ask questions if they do not understand what they are told or what they should do.
[2022-09-24] MEDS: SODIUM CHLORIDE 0.9% IV 1,000 ML 125 ML IV CONT (04:43)
--- NOTE | 2022-09-24 13:10 | PM.IMHP ---
H&P: HPI History of Present Illness Date/Time: 09/24/22 13:10 Chief Complaint: RLQ pain Narrative: This is a 27-year-old woman who presented to the emergency department overnight with worsening right lower quadrant pain. Her pain started yesterday morning and progressed throughout the day. By the evening the pain was all across her lower abdomen. She was having chills but no fevers. She had some nausea but no vomiting. She denies any change in her bowel habits. She has never experienced any symptoms like this in the past. Review of Systems Review of Systems: All systems reviewed & are unremarkable except as noted in HPI and below Constitutional: Constitutional: Reports chills Eyes: Eyes: Denies change in vision ENT: Denies hearing loss, Denies neck pain and Denies sore throat Cardiovascular: Cardiovascular: Denies chest pain and Denies dyspnea Respiratory: Respiratory: Denies cough, Denies dyspnea and Denies wheezing Gastrointestinal: Gastrointestinal: Reports as per HPI Genitourinary: Genitourinary: Denies hematuria and Denies dysuria Musculoskeletal: Musculoskeletal: Denies arthralgias, Denies joint swelling and Denies neck pain Allergic/Immunologic: Allergic/Immunologic: Denies wheezing PMFSH Past Medical History Medical History Bronchitis GERD (gastroesophageal reflux disease) Surgical History Surgical History No significant past surgical history Family History Family History (Updated 09/24/22 @ 13:13 by Sorin Julio DO) Other Family history non-contributory Family history unknown Social History Social History Smoking status: Never smoker Second hand tobacco smoke exposure: No Alcohol intake: never Substance use: never Substance use type: does not use Lack of Transportation: No Lack of Food: Never True Current Housing: I Have Housing Concerned About Future Housing: No Difficulty Paying Gas/Electric Bills: No Difficulty Paying for Meds: No Currently Unemployed: No Education: High School Diploma/GED Difficulty w/ Childcare or Family Care: No Spiritual care concerns: No Meds Home Medications and Allergies Home Medications Medication Instructions Recorded Confirmed Type No Home Medications 09/23/22 09/24/22 History Allergies Allergy/AdvReac Type Severity Reaction Status Date / Time No Known Allergies Allergy Verified 09/23/22 23:08 Vital Signs Vital Signs - 24 hr 09/23/22 21:13 09/23/22 23:56 09/24/22 03:16 Temperature 36.6 C Pulse Rate 85 82 108 H Respiratory Rate 18 16 15 Blood Pressure 135/87 128/86 102/67 Pulse Oximetry 100 98 98 Oxygen Delivery Room Air 09/24/22 06:00 09/24/22 09:00 Temperature 35.8 C L Pulse Rate 90 Respiratory Rate 16 Blood Pressure 131/44 L Pulse Oximetry 98 Oxygen Delivery Room Air Exam Const: General: alert; No acute distress Orientation/consciousness: patient oriented x3 Limitations: no limitations HENMT: Head: normocephalic and atraumatic Ears: hearing grossly normal bilaterally Face/Nose/Sinus: Normal external nose present and Normal nares present Mouth: Yes Normal oral and palatal mucosa present and Yes moist mucous membranes Eyes: General: appearance normal, both eyes and all related structures Conjunctivae: conjunctivae normal Sclera: sclerae normal Pupils: Equal, round and reactive pupils present EOM: EOMs intact bilaterally Neck: Neck: normal visual inspection, full ROM, no lymphadenopathy, supple and no JVD Lymphatic: no lymphadenopathy noted Chest: Chest palpation & inspection: normal inspection of the chest Resp: Effort & Inspection: normal respiratory effort and able to speak in complete sentences Auscultation: clear to auscultation bilaterally Percussion: percussion normal Cardio:
--- NOTE | 2022-09-24 13:15 | WPDHPUPDATE1 ---
History and Physical Update Update Date/Time: 09/24/22 13:15 History and Physical has been reviewed, including an updated exam of the patient. There are NO changes in the patient's condition. Risks, benefits, and alternatives have been discussed and questions answered. Patient agrees to proceed with procedure.
--- NOTE | 2022-09-24 14:28 | WPDANESEPPF ---
Anes - Initial Pre Proc Eval Procedure: Operation Date: 09/24/22 15:00 Proposed Procedures p Laparoscopic Appendectomy - Sorin Julio DO Date/Time: 09/24/22 14:28 Surgeon: Sorin Julio DO Pre Op Diagnosis: Acute Appendicitis Patient Data Age: 27 Gender: F Height: 1.73 m Weight: 115.9 kg Last Vital Signs Temp 35.8 C L 09/24/22 06:00 Pulse 90 09/24/22 06:00 Resp 16 09/24/22 06:00 BP 131/44 L 09/24/22 06:00 Pulse Ox 98 09/24/22 06:00 O2 Del Method Room Air 09/24/22 09:00 Allergies Allergy/AdvReac Type Severity Reaction Status Date / Time No Known Allergies Allergy Verified 09/23/22 23:08 Home Medications Medication Instructions Recorded Confirmed Type No Home Medications 09/23/22 09/24/22 History Laboratory Tests 09/23/22 09/24/22 21:47 00:00 WBC 14.0 H K/mm3 (4.5-10.0) RBC 4.71 M/mm3 (4.2-5.4) Hgb 14.7 g/dL (12.0-15.0) Hct 44.0 % (37.0-47.0) MCV 93.4 fl (80-100) MCH 31.2 pg (26-34) MCHC 33.4 g/dl (32-36) RDW 12.4 % (11.5-14.5) Plt Count 299 k/mm3 (150-375) MPV 9.1 fl (7.4-10.4) Immature Gran % (Auto) 0.2 % (0-0.5) Neut % (Auto) 74.8 H % (45.5-73.1) Lymph % (Auto) 19.8 % (18.3-44.2) [place] % (Auto) 4.1 % (2.6-8.5) Eos % (Auto) 0.8 % (0-4.4) Baso % (Auto) 0.3 % (0.2-1.2) Lymph # (Auto) 2.77 K/mm3 (0.9-3.2) [place] # (Auto) 0.6 K/mm3 (0.1-0.6) Eos # (Auto) 0.1 K/mm3 (0-0.3) Baso # (Auto) 0.0 K/mm3 (0.0-0.1) Abs Immat Gran (auto) 0.03 K/mm3 (0.00-0.031) Absolute Neuts (auto) 10.5 H K/mm3 (1.3-6.7) Absolute Nucleated RBC 0.0 K/mm3 (0.0-0.012) Nucleated RBC % 0.0 % (0.0-0.2) Sodium 134 L mmol/L (137-145) Potassium 4.1 mmol/L (3.4-5.0) Chloride 99 mmol/L (98-107) Carbon Dioxide 29 mmol/L (22-30) Anion Gap 6 L mmol/L (8-16) BUN 13 mg/dL (7-17) Creatinine 0.80 mg/dL (0.7-1.0) Estim Creat Clear Calc 123 ml/min Estimated GFR > 60 (59 - ) Glucose 91 mg/dL (65-110) Calcium 8.9 mg/dL (8.4-10.2) Total Bilirubin 0.4 mg/dL (0.2-1.3) AST 26 U/L (14-36) ALT 29 U/L (6-35) Alkaline Phosphatase 92 U/L (38-126) Total Protein 8.0 g/dL (6.3-8.2) Albumin 4.5 g/dL (3.5-5.1) Lipase 64 U/L (23-300) Urine Color Yellow (Yellow) Urine Appearance Clear (Clear) Urine pH 6.0 (5.0-9.0) Ur Specific [place] 1.015 (1.001-1.035) Urine Protein Negative mg/dL (Negative) Urine Glucose (UA) Negative mg/dL (Negative) Urine Ketones Negative mg/dL (Negative) Ur Blood (Man) Negative (Negative) Urine Nitrate Negative (Negative) Urine Bilirubin Negative (Negative) Urine Urobilinogen 0.2 mg/dL (<2.0) Leukocyte Esterase Rfl Negative DL/UL (Negative) Patient hx anesthesia problems: none Family hx anesthesia problems: none Results Review: All pre-operative results and documents have been reviewed as part of the pre-operative evaluation. [facility] Past Medical History Medical History Bronchitis GERD (gastroesophageal reflux disease) Surgical History Surgical History No significant past surgical history Family History Family History Other Family history non-contributory Family history unknown Social History Social History Smoking status: Never smoker Second hand tobacco smoke exposure: No Alcohol intake: never Substance use: never Substance use type: does not use Lack o
[2022-09-24] MEDS: LACTATED RINGERS 1,000 ML 30 ML IV CONT (15:11)
[2022-09-24] MEDS: BUPIVACAINE/EPINEPHRINE 0.5% 50 ML VIAL 30 ML INFILTRATE (15:45)
--- NOTE | 2022-09-24 16:23 | W.PM.PROC2 ---
Procedure Note - Detailed Date of Procedure 09/24/22 Pre-op Diagnosis Acute Appendicitis Post-op Diagnosis Same Procedure Performed Laparoscopic appendectomy Surgeon Sorin Julio, DO Anesthesia General and Local (0.5% bupivicaine with epinephrine) Indications This is a 27-year-old woman who presented to the emergency department this morning with right lower quadrant abdominal pain that started yesterday morning. Pain progressed throughout the day and she was also experiencing chills and nausea. Her white blood count was elevated and CT showed evidence of acute uncomplicated appendicitis. She was admitted and placed on IV Zosyn. Discussions were made with the patient about treatment options and decision was made to proceed with laparoscopic appendectomy, possible open. Findings Laparoscopic appendectomy was performed. The appendix appeared dilated and indurated. There was no evidence of perforation or abscess. No other significant abnormalities were noted. The appendix was removed and sent to the lab for pathology. Description of Procedure Procedure as well as risks, benefits, and alternatives were explained to the patient. The patient agreed to proceed. Written consent was obtained and placed in chart prior to procedure. The patient was brought back to surgical suite. She was placed supine on operating table. Time-out was done to confirm the patient and procedure. The patient was then intubated by the Anesthesia Department. Her abdomen was prepped and draped in sterile fashion using chlorhexidine prep. A 5 mm incision was made just to the left of the patient's umbilicus and a 5 mm Optiview trocar was advanced through the abdominal layers under direct visualization. Once inside the peritoneal cavity, carbon dioxide insufflation was used to create a pneumoperitoneum. The camera was inserted and the abdomen was inspected. No immediate abnormalities were identified. The patient was then placed in slight Trendelenburg position and rotated to the left. A 5 mm incision was made in the suprapubic region in midline and a 5 mm trocar was inserted under direct visualization. A 12 mm incision was made in the left lower quadrant and a 12 mm trocar was inserted under direct visualization. The right lower quadrant was carefully inspected. The cecum was identified and then this was traced back to the appendix. The appendix was identified and grasped at the mesoappendix and lifted anteriorly. Careful blunt dissection was carried out at the base of the appendix through the mesoappendix using a [place] grasper. An Endo-NYLA 45 mm blue load stapler was then advanced across the base of the appendix and clamped and fired. A white reload was then clamped across the mesoappendix and fired. This freed up our appendix completely. It was then placed in an EndoCatch bag and removed through the left lower quadrant port. The staple lines were then inspected. Hemostasis appeared adequate and the staple lines appeared secure. The area was then irrigated with sterile saline. The pelvis was then carefully inspected and irrigated with sterile saline as well and the remainder of the abdomen was carefully inspected. The patient was then flattened out in bed. One final inspection was made around the abdominal cavity and no other abnormalities were seen. The left lower quadrant port was removed and a Pawel-Carolyn cone was used to approximate the fascia with an 0 Vicryl simple interrupted suture. The remaining ports were then removed under direct visualization. The camera was removed and the pneumoperitoneum was released. 0.5% bupivacaine with epinephrine was infiltrated locally around each of the incisions. The skin of the incisions was then approximated using 4-0 Monocryl subcuticular suture and Exofin glue was applied on top. The patient was then awakened from anesthesia, extubated, and transferred to Recovery. Estimated Blood Loss 5 Urine Output 300 Pathology
--- NOTE | 2022-09-24 16:30 | PM.DS ---
DS: Admitting Diagnosis Discharge Date 09/24/2022 Admitting Diagnosis Acute appendicitis DS: Discharge Diagnosis Discharge Diagnosis (1) Acute appendicitis: Qualifiers: Acute appendicitis type: with localized peritonitis Appendicitis abscess presence: without abscess Appendicitis gangrene presence: without gangrene Appendicitis perforation presence: without perforation Qualified Code(s): K35.30 - Acute appendicitis with localized peritonitis, without perforation or gangrene Code(s): K35.80 - Unspecified acute appendicitis Status: Acute DS: Summary Hospital Course Reason for hospitalization: Acute appendicitis Hospital Course: This is a 27-year-old woman who presented to the emergency department early this morning with right lower quadrant pain that started yesterday morning. Pain progressed throughout the day and became severe overnight and she therefore came to the ER. She was found to have evidence of acute appendicitis and was admitted for further treatment. IV Zosyn was started and discussions were made with the patient about medical treatment versus surgical. Patient underwent laparoscopic appendectomy on 09/24/2022. Surgery was uncomplicated and she was returned to the surgical floor postoperatively. Her diet and activity were advanced as tolerated. She was discharged once her pain was controlled, she was tolerating her diet, her vitals were stable, and she was ambulating in the halls. Status at Discharge Functional status at discharge: independent ambulation Overall status at discharge: patient is progressing back to baseline Time Spent with Patient Time attestation: Total time spent providing and/or coordinating discharge services: Time spent: Less than 30 minutes Exam Const: General: no acute distress Orientation/consciousness: patient oriented x3 GI: Inspection: normal to inspection and incision (Intact with glue) GI Palp: Yes Soft to palpation and Yes Tenderness to palpation present (GI) (Incisional) DS: Data Data Completed and Pending Pending studies at discharge: Pending at discharge 09/24/22 15:57 Surgical [PTH] Routine Labs on day of discharge: Labs from last 24 hours 09/24/22 09/23/22 00:00 21:47 WBC 14.0 H RBC 4.71 Hgb 14.7 Hct 44.0 MCV 93.4 MCH 31.2 MCHC 33.4 RDW 12.4 Plt Count 299 MPV 9.1 Immature Gran % (Auto) 0.2 Neut % (Auto) 74.8 H Lymph % (Auto) 19.8 [place] % (Auto) 4.1 Eos % (Auto) 0.8 Baso % (Auto) 0.3 Lymph # (Auto) 2.77 [place] # (Auto) 0.6 Eos # (Auto) 0.1 Baso # (Auto) 0.0 Abs Immat Gran (auto) 0.03 Absolute Neuts (auto) 10.5 H Absolute Nucleated RBC 0.0 Nucleated RBC % 0.0 Sodium 134 L Potassium 4.1 Chloride 99 Carbon Dioxide 29 Anion Gap 6 L BUN 13 Creatinine 0.80 Estim Creat Clear Calc 123 Estimated GFR > 60 Glucose 91 Calcium 8.9 Total Bilirubin 0.4 AST 26 ALT 29 Alkaline Phosphatase 92 Total Protein 8.0 Albumin 4.5 Lipase 64 Urine Color Yellow Urine Appearance Clear Urine pH 6.0 Ur Specific [place] 1.015 Urine Protein Negative Urine Glucose (UA) Negative Urine Ketones Negative Ur Blood (Man) Negative Urine Nitrate Negative Urine Bilirubin Negative Urine Urobilinogen 0.2 Leukocyte Esterase Rfl Negative Imaging Radiologist's impression: ITS Impressions Abdomen/Pelvis CT 09/24/22 08:28 IMPRESSION: 1. Uncomplicated acute appendicitis. Discharge Plan Discharge Attending physician on discharge: Sorin Julio Consulting providers: Terry Monroe; Alex Deleon Discharging Clinician: Sorin Julio Anticipated Discharge Date/Time: 09/24/22 20:00 Patient Disposition: Home, Self-Care Activity: other - see discharge instructions Diet: regular Wound Care Instructions: other - see discharge instructions Discharge Instructions: DISCHARGE INSTRUCTION SHEET FOR
[2022-09-24] MEDS: fentaNYL CITRATE INJ (*CRX) 100 MCG/2 ML VIAL 25 MCG IV PUSH ×2 (16:55→17:00)
== END 2022-09-24 21:04 | disposition home or self-care (01) ==
LOC: ANHED 09-24 03:19 → ANH3MEDSUR 09-24 03:35
PROVIDERS: Admitting Provider Surgery; Emergency Provider Emergency Medicine; PCP Family Medicine; Visit Provider Surgery
PROC: 0DTJ4ZZ Resection of Appendix, Percutaneous Endoscopic Approach (ICD-10-PCS; CPT 44970; principal; 2022-09-24 15:00)
DX: K35.80 Unspecified acute appendicitis (principal); K21.9 Gastro-esophageal reflux disease without esophagitis; E66.9 Obesity, unspecified; Z68.38 Body mass index [BMI] 38.0-38.9, adult
CPT/HCPCS: 44970; 36415; 74019; 74177; 80053; 81003; 81025; 83690; 85025; 88304; 96361; 96374; 96375; 96376; 99285; A9270; G0378; G0379; J1100; J1200; J2250; J2270; J2405; J2543; J2704; J3010; J7030; J7120; Q9967

== ENCOUNTER 2022-10-02 12:27 | Emergency (ER) | payer OTHER, SELFPAY ==
--- NOTE | 2022-10-02 12:28 | ED.SKABFB ---
HPI - Skin/Abscess/Foreign Bdy General Chief complaint: Wound/Laceration Stated complaint: Wound Check Time Seen by Provider: 10/02/22 13:18 Source: patient and RN notes reviewed Mode of arrival: ambulatory Limitations: no limitations History of Present Illness HPI narrative: 27-year-old female presents with concern for discomfort in her abdominal area. She reports she has 3 her glute incisions from an appendectomy 8 days ago. She reports some redness surrounding the incisions and discomfort. She denies fever, aches, chills, sweats. She reports there was some drainage from skin blister near her belly button. complaint: rash Related Data Allergies Allergy/AdvReac Type Severity Reaction Status Date / Time No Known Allergies Allergy Verified 10/02/22 12:45 Review of Systems Review of Systems: CONSTITUTIONAL: Denies malaise, chills, sweats, or fever. EYES: Denies redness, or discharge. ENT: Denies rhinorrhea, congestion, swollen lips, swollen tongue CARDIOVASCULAR: Denies chest pain, palpitations, or edema. RESPIRATORY: Denies cough or dyspnea. GASTROINTESTINAL: Denies abdominal pain, nausea, vomiting SKIN: Reports concern for abdominal wounds MUSCULOSKELETAL: Denies joint pain or myalgia. NEUROLOGIC: Denies headache. All systems reviewed & are unremarkable except as noted in HPI and below PMFSH Past Medical History Medical History Bronchitis GERD (gastroesophageal reflux disease) Surgical History Surgical History No significant past surgical history Family History Family History Other Family history non-contributory Family history unknown Social History Social History Smoking status: Never smoker Second hand tobacco smoke exposure: No Alcohol intake: never Substance use: never Substance use type: does not use Lack of Transportation: No Lack of Food: Never True Current Housing: I Have Housing Concerned About Future Housing: No Difficulty Paying Gas/Electric Bills: No Difficulty Paying for Meds: No Currently Unemployed: No Education: High School Diploma/GED Difficulty w/ Childcare or Family Care: No Spiritual care concerns: No Comments At time of signature, agree with nursing past medical, surgical, social and family history. There is no relevant family history pertinent to the presenting complaint Exam Narrative: GENERAL: Well-appearing, well-nourished, and in no acute distress. HEAD: Normocephalic, atraumatic. EYES: PERRLA, conjunctivae clear, and EOMI. ENT: Mucous membranes moist. Oropharynx without edema, erythema or lesions. NECK: Supple. No lymphadenopathy CHEST: Clear to auscultation. No respiratory distress. HEART: Regular rate and rhythm. SKIN: Warm, dry. Three laparoscopic incisions well approximated with skin glue intact noted today abdomen. Erythema noted under the glue on each site, consistent with dermatitis. The incision next to the umbilicus has erythema extending out from underneath the glue towards the umbilicus with a small area of open skin. There is no induration, edema, warmth to any area of the abdomen, no general abdominal tenderness. NEURO: Alert and oriented x3. PSYCH: Normal mood and affect Course Course Emergency Course: Patient is aware of diagnosis, understands and agrees to treatment plan. Anticipatory guidance given. Patient agrees to follow-up as directed and is aware of reasons to seek care at the emergency department. Portions of this record may have been created with voice recognition software Level of Care: Express Care Visit Vital Signs Vital signs: Reviewed. MDM - Skin/Abscess/Foreign Bdy MDM Narrative Medical decision making narrative: Exam findings show no acute concerns or smith
[2022-10-02 12:38] VITALS: BP 114/66; PULSE 74; RESP 16; TEMP 36.9; O2SAT 99
== END 2022-10-02 13:32 | disposition home or self-care (01) ==
PROVIDERS: Emergency Provider Nurse Practitioner; PCP Family Medicine
DX: R21 Rash and other nonspecific skin eruption (principal); K21.9 Gastro-esophageal reflux disease without esophagitis
CPT/HCPCS: 99213; G0463

== ENCOUNTER 2022-10-24 22:16 | Emergency (ER) | payer OTHER, SELFPAY ==
--- NOTE | ~2022-10-24 | XR_ITS ---
EXAMINATION: XR chest 2V DATE: 10/24/2022 22:42 INDICATION: Chest pain. TECHNIQUE: Frontal and lateral views of the chest were obtained. COMPARISON: Chest 2 views 12/27/2021 FINDINGS: There is no pneumonia, pleural effusion, or pneumothorax. The heart size is normal. IMPRESSION: 1. No acute cardiopulmonary disease. Reviewed, dictated and finalized at location E.
--- NOTE | 2022-10-24 22:18 | ECG_ITS ---
Measurements Intervals [place] Rate: 83 P: 35 AL: 135 QRS: 37 QRSD: 94 T: 30 QT: 351 QTc: 413 Interpretive Statements SINUS RHYTHM INCOMPLETE RIGHT BUNDLE BRANCH BLOCK BORDERLINE ECG COMPARED TO ECG 12/27/2021 06:40:40 NO SIGNIFICANT CHANGES Electronically Signed On 10-25-2022 6:07:05 CDT by Neel Cooney D.O.
[2022-10-24 22:22] VITALS: PULSE 95; RESP 14; TEMP 36.4; O2SAT 99
[2022-10-24 22:23] VITALS: BP 115/70
[2022-10-25 01:21] LABS: Basophils Absolute Auto 0.1 K/mm3 (0.0-0.1); Basophils Percent Auto 0.7 % (0.2-1.2); Eosinophils Absolute Auto 0.2 K/mm3 (0-0.3); Eosinophils Percent Auto 1.8 % (0-4.4); Hematocrit 39.9 % (37.0-47.0); Hemoglobin 13.5 g/dL (12.0-15.0); Immature Granulocyte Absolute 0.02 K/mm3 (0.00-0.031); Immature Granulocyte Percent A 0.2 % (0-0.5); Lymphocytes Percent Auto 38.3 % (18.3-44.2); Mean Corpuscular HGB Conc 33.8 g/dl (32-36); Mean Corpuscular Hemoglobin 31.3 pg (26-34); Mean Corpuscular Volume 92.6 fl (80-100); Mean Platelet Volume 9.3 fl (7.4-10.4); Monocytes Absolute Auto 0.4 K/mm3 (0.1-0.6); Monocytes Percent Auto 4.8 % (2.6-8.5); Neutrophils Absolute Auto 4.5 K/mm3 (1.3-6.7); Neutrophils Percent Auto 54.2 % (45.5-73.1); Platelet Count Result 278 k/mm3 (150-375); Red Blood Count 4.31 M/mm3 (4.2-5.4); Red Cell Distribution Width 12.5 % (11.5-14.5); White Blood Count 8.4 K/mm3 (4.5-10.0)
[2022-10-25 01:42] LABS: D Dimer 0.36 ug/mL (<0.48)
[2022-10-25 01:46] LABS: Alanine Aminotransferase 26 U/L (6-35); Alkaline Phosphatase 77 U/L (38-126); Anion Gap 5 mmol/L (8-16); Aspartate Amino Transferase 22 U/L (14-36); Bilirubin,Total 0.4 mg/dL (0.2-1.3); Blood Urea Nitrogen 19 mg/dL (7-17); Calcium 8.9 mg/dL (8.4-10.2); Carbon Dioxide 24 mmol/L (22-30); Chloride 103 mmol/L (98-107); Estimated CRCL calculation 124 ml/min; Estimated Glomerular Filt Rate > 60; Glucose 125 mg/dL (65-110); NT Pro B Type Natriuretic Pept 23 pg/mL (19.9-100); Potassium 3.7 mmol/L (3.4-5.0); Sodium 132 mmol/L (137-145); Troponin I < 0.012 ng/mL (0.000-0.034)
[2022-10-25] MEDS: IBUPROFEN 400 MG TABLET 800 MG PO (02:01)
[2022-10-25] MEDS: ACETAMINOPHEN 500 MG TABLET 1000 MG PO (02:01)
--- NOTE | 2022-10-25 02:29 | ED.GENADULT ---
HPI - General Adult General Chief complaint: Chest Pain Stated complaint: chest pain Time Seen by Provider: 10/25/22 00:03 History of Present Illness HPI narrative: This is a 19-year-old female presenting with 3 days of chest pain. As a sharp pain on the left side of her chest that radiates from the epigastric to her left shoulder. 8/10 in intensity. his occurred 6-7 times per day and last for 5 minutes at time of for resolving on her own. Patient denies feeling like this in the past, there are no exacerbating / alleviating factors. patient had an appendicitis with surgery approximately 1 month ago. Patient denies fever chills cough shortness of breath or abdominal pain. Related Data Allergies Allergy/AdvReac Type Severity Reaction Status Date / Time No Known Allergies Allergy Verified 10/24/22 22:17 [facility] Past Medical History Medical History Bronchitis GERD (gastroesophageal reflux disease) Surgical History Surgical History History of laparoscopic appendectomy 09/24/22 No significant past surgical history Family History Family History Other Family history non-contributory Family history unknown Social History Social History Smoking status: Never smoker Second hand tobacco smoke exposure: No Alcohol intake: never Substance use: never Substance use type: does not use Lack of Transportation: No Lack of Food: Never True Current Housing: I Have Housing Concerned About Future Housing: No Difficulty Paying Gas/Electric Bills: No Difficulty Paying for Meds: No Currently Unemployed: No Education: High School Diploma/GED Difficulty w/ Childcare or Family Care: No Spiritual care concerns: No Exam Narrative: APPEARANCE: No apparent distress. Head: atraumatic. EYES: EOMI, NOSE: Atraumatic NECK: Trachea midline RESPIRATORY: No increased rate of breathing Clear to auscultation CARDIOVASCULAR: RRR, no peripheral edema ABDOMINAL: Non-distended MUSCULOSKELETAl: No obvious deformities, no reproducible chest pain NEURO: Alert. Moving 4/4 extremities SKIN:: Warm, dry. Normal color PSYCHIATRIC: Normal affect Course Vital Signs Vital signs: Vital Signs Temperature 97.6 F 10/24/22 22:22 Pulse Rate 95 10/24/22 22:22 Respiratory Rate 14 10/24/22 22:22 Pulse Oximetry 99 10/24/22 22:22 Temperature 97.6 F 10/24/22 22:22 Pulse Rate 95 10/24/22 22:22 Respiratory Rate 14 10/24/22 22:22 Blood Pressure 115/70 10/24/22 22:23 Pulse Oximetry 99 10/24/22 22:22 Medical Decision Making MDM Narrative Medical decision making narrative: -Presentation: 19-year-old female presenting with pleuritic chest pain. She had appendicitis 1 month ago and underwent surgery. She will workup for pulmonary embolism. 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 similar presentation. Negative workup at that time. -Hx from independent Sources: None -Independent interpretation of studies: CBC normal. Metabolic panel unremarkable. D-dimer 0.36. Troponin BNP negative. Chest x-ray is normal. Independent EKG interpretation: Rhythm [sinus], Rate [83], [place] -[normal], [place] -[normal], QRS [narrow], QTC [normal], T waves -[negative for concerning inversions], ST Segments - [Negative for concerning elevations] Final interpretations: [Normal Sinus Rhythm] -Discussion of Management/ Consultants: none -Dx tests considered but not ordered: CT PE: Negative D-dimer and low risk per W
[2022-10-25 03:20] VITALS: BP 127/83; PULSE 76; RESP 15; O2SAT 99
== END 2022-10-25 03:20 | disposition home or self-care (01) ==
PROVIDERS: Emergency Provider Emergency Medicine; PCP Family Medicine
DX: R07.89 Other chest pain (principal)
CPT/HCPCS: 36415; 71046; 80053; 83880; 84484; 85025; 85380; 93005; 99284; A9270

== ENCOUNTER 2023-02-12 15:40 | Emergency (ER) | payer OTHER, SELFPAY ==
[2023-02-12 15:48] VITALS: BP 118/72; PULSE 81; RESP 16; TEMP 36.7; O2SAT 99
--- NOTE | 2023-02-12 16:23 | ED.SKABFB ---
HPI - Skin/Abscess/Foreign Bdy General Chief complaint: Skin/Abscess/Foreign Body Stated complaint: Wound Check Source: patient Mode of arrival: ambulatory Limitations: no limitations History of Present Illness HPI narrative: 27-year-old female presented for complaint of wound to the left abdomen first noticed 3 weeks ago. States it started as a pimple which she popped with a safety pin and had small amount of drainage at that time. States it did not give her any problems until yesterday when she scratched the area and noted dark red drainage. States the center had a small hole, so she wanted it checked. Reports concern for spider bite. Denies any other skin concerns or changes. Related Data Home Medications Medication Instructions Recorded Confirmed No Home Medications 02/12/23 02/12/23 Allergies Allergy/AdvReac Type Severity Reaction Status Date / Time No Known Allergies Allergy Verified 02/12/23 16:00 Review of Systems Review of Systems: CONSTITUTIONAL: Denies body aches, fever, chills, or sweats. EYES: Denies visual changes, redness, or discharge. ENT: Denies rhinorrhea, congestion CARDIOVASCULAR: Denies chest pain, palpitations, or edema. RESPIRATORY: Denies cough or dyspnea. GASTROINTESTINAL: Denies abdominal pain, nausea, vomiting, or diarrhea. SKIN: Wound to left abdomen MUSCULOSKELETAL: Denies back pain, joint pain, or myalgia. NEUROLOGIC: Denies headache, numbness, tingling, or weakness. [facility] Past Medical History Medical History Bronchitis GERD (gastroesophageal reflux disease) Surgical History Surgical History History of laparoscopic appendectomy 09/24/22 No significant past surgical history Family History Family History Other Family history non-contributory Family history unknown Social History Social History Smoking status: Never smoker Second hand tobacco smoke exposure: No Alcohol intake: never Substance use: never Substance use type: does not use Lack of Transportation: No Lack of Food: Never True Current Housing: I Have Housing Concerned About Future Housing: No Difficulty Paying Gas/Electric Bills: No Difficulty Paying for Meds: No Currently Unemployed: No Education: High School Diploma/GED Difficulty w/ Childcare or Family Care: No Spiritual care concerns: No Comments At time of signature, I have reviewed and agree with nursing past medical, surgical, social and family history unless otherwise noted. Please see nursing chart for further information. There is no relevant family history pertinent to the presenting complaint Exam Narrative: GENERAL: Well-appearing HEAD: Normocephalic, atraumatic. EYES: conjunctivae clear, and EOMI. ENT: Mucous membranes moist. Oropharynx without edema, erythema or lesions. NECK: Supple. No lymphadenopathy CHEST: Clear to auscultation. HEART: Regular rate and rhythm. SKIN: Warm, dry. Left lower abdomen healing scabbed lesion approx 0.5cm diameter, soft, nontender, no fluctuance or drainage. NEURO: Alert and oriented x3. Course Course Emergency Course: Patient is aware of diagnosis, understands and agrees to treatment plan. Anticipatory guidance given. Patient agrees to follow-up as directed and is aware of reasons to seek care at the emergency department. Portions of this record may have been created with voice recognition software Level of Care: Express Care Visit Vital Signs Vital signs: Vital Signs Temperature 98.0 F 02/12/23 15:48 Pulse Rate 81 02/12/23 15:48 Respiratory Rate 16 02/12/23 15:48 Blood Pressure 118/72 02/12/23 15:48 Pulse Oximetry 99 02/12/23 15:48 Oxygen Delivery Room Air 02/12/23 15:48 Temperature 98.0 F
== END 2023-02-12 16:35 | disposition home or self-care (01) ==
PROVIDERS: Emergency Provider Nurse Practitioner Family; PCP Family Medicine
DX: S31.104A Unspecified open wound of abdominal wall, left lower quadrant without penetration into peritoneal cavity, initial encounter (principal); X58.XXXA Exposure to other specified factors, initial encounter; K21.9 Gastro-esophageal reflux disease without esophagitis
CPT/HCPCS: 99211; G0463

== ENCOUNTER 2023-11-24 15:14 | Emergency (ER) | payer OTHER, SELFPAY ==
--- NOTE | 2023-11-24 15:16 | ED.URI ---
HPI - URI/Sore Throat General Chief Complaint: Fever Stated Complaint: fever Time Seen by Provider: 11/24/23 15:16 Source: patient Mode of arrival: ambulatory Limitations: no limitations History of Present Illness HPI Narrative: Yasemin is a 28-year-old female patient presenting to the clinic today with complaints of a nasal congestion, cough, slight sore throat, and very low-grade temperature since last night. States she overall does not feel well. Denies any chest pain or shortness of breath. MD elicited complaint: fever, cough, sore throat, rhinorrhea and nasal congestion Related Data Home Medications Medication Instructions Recorded Confirmed No Home Medications 02/12/23 02/12/23 Allergies Allergy/AdvReac Type Severity Reaction Status Date / Time No Known Allergies Allergy Verified 02/12/23 16:00 Review of Systems Review of Systems: Pertinent positives per HPI. Patient denies any fever, chills, rash, headache, visual changes, dizziness, cough, shortness of breath, chest pain, palpitations, nausea, vomiting, diarrhea, constipation, abdominal pain, or any urinary issues. [facility] Past Medical History Medical History Bronchitis GERD (gastroesophageal reflux disease) Surgical History Surgical History History of laparoscopic appendectomy 09/24/22 No significant past surgical history Family History Family History Other Family history non-contributory Family history unknown Social History Social History Smoking status: Never smoker Second hand tobacco smoke exposure: No Alcohol intake: never Substance use: never Substance use type: does not use Lack of Transportation: No Lack of Food: Never True Current Housing: I Have Housing Concerned About Future Housing: No Difficulty Paying Gas/Electric Bills: No Difficulty Paying for Meds: No Currently Unemployed: No Education: High School Diploma/GED Difficulty w/ Childcare or Family Care: No Spiritual care concerns: No Comments At the time of my signature, I reviewed and agree with the nursing past medical, surgical, social, and family history. There is no relevant family history pertinent to the patient complaint. Exam Narrative: General: Well-developed, obese, in no apparent distress Head: Normocephalic, atraumatic Eyes: Pupils equally round and reactive to light bilaterally, EOM intact, sclera and conjunctive clear, no discharge, lids normal Ears: TMs intact and congested, ear canals clear, no drainage, grossly hearing normal. Nose: Nares patent, clear nasal discharge, no inflammation, no sinus tenderness. Mouth: Oral pharynx red without lesions or masses, good dentition, MMM. Neck: Supple, trachea midline, no enlargement of anterior or posterior cervical nodes, no thyroid masses or goiter palpable. Cardio: Regular rate and rhythm, s1 and s2 normal, no murmur appreciated. Resp: Clear to auscultation bilaterally, no rhonchi, rales, wheezing or rubs Course Course Emergency Course: Portions of this record may have been created with voice recognition software. Level of Care: Express Care Visit Vital Signs Vital signs: Vital signs reviewed MDM - URI/Sore Throat MDM Narrative Medical decision making narrative: At the time of visit patient is resting comfortably on the exam table. Patient appears to be nontoxic. Labs: COVID testing was negative in the clinic today Plan: I suspect patient has URI. Supportive measures were discussed with the patient and they voiced understanding discharge instructions and agrees to treatment plan. Return precautions reviewed Differential Diagnosis Differential diagnosis: Likely upper respiratory infection, otitis media, sinusitis, viral
[2023-11-24 15:25] VITALS: BP 109/62; PULSE 99; RESP 16; TEMP 37.5; O2SAT 99
== END 2023-11-24 15:50 | disposition home or self-care (01) ==
PROVIDERS: Emergency Provider Nurse Practitioner Family; PCP Family Medicine
DX: J06.9 Acute upper respiratory infection, unspecified (principal); Z20.822 Contact with and (suspected) exposure to COVID-19; K21.9 Gastro-esophageal reflux disease without esophagitis
CPT/HCPCS: 87426; 99212; G0463

== ENCOUNTER 2024-04-05 10:23 | Emergency (ER) | payer OTHER, SELFPAY ==
--- NOTE | ~2024-04-05 | XR_ITS ---
EXAMINATION: XR ankle LT min 3V DATE: 04/05/2024 10:54 INDICATION: Left ankle pain. Inversion injury. TECHNIQUE: 4 views of left ankle were obtained. COMPARISON: None. FINDINGS: Alignment is normal. No fracture. Joint spaces are normal. There is an enthesophyte at plan tar aspect of calcaneal tuberosity. There is ankle soft tissue swelling. IMPRESSION: 1. No fracture. Reviewed, dictated and finalized at location A. [employer] PL[employer]NER IMPRESSION: 1. No fracture.
[2024-04-05 10:42] VITALS: BP 114/62; PULSE 89; RESP 18; O2SAT 100
--- NOTE | 2024-04-05 10:45 | ED_ITS ---
HPI - Extremity Injury (Lower) General Chief Complaint: Extremity Injury, Lower Stated Complaint: Left Ankle/Foot Pain Source: patient Mode of arrival: ambulatory Limitations: no limitations History of Present Illness HPI Narrative: 28-year-old female presented for complaint of left ankle pain and swelling after injury 2 nights ago. She states while walking down the stairs she slipped and felt like she rolled the right ankle, then over compensated and rolled the left ankle. Endorses a history of frequent sprains of the left ankle. Denies numbness, tingling, weakness. Has used a scooter, Crutches, and elevated the foot. Related Data Allergies Allergy/AdvReac Type Severity Reaction Status Date / Time No Known Allergies Allergy Verified 04/05/24 10:25 Review of Systems Review of Systems: CONSTITUTIONAL: Denies body aches, fever, chills CARDIOVASCULAR: Denies chest pain, palpitations, or edema. RESPIRATORY: Denies cough or dyspnea. SKIN: Denies wounds. MUSCULOSKELETAL: reports ankle pain and swelling NEUROLOGIC: Denies headache, numbness, tingling, or weakness. PSYCH: Denies depression or anxiety. All systems reviewed & are unremarkable except as noted in HPI and below PMFSH Past Medical History Medical History GERD (gastroesophageal reflux disease) Bronchitis Surgical History Surgical History History of laparoscopic appendectomy 09/24/22 No significant past surgical history Family History Family History Other Family history non-contributory Family history unknown Social History Social History Smoking status: Never smoker Second hand tobacco smoke exposure: No Alcohol intake: never Substance use: never Substance use type: does not use Lack of Transportation: No Lack of Food: Never True Current Housing: I Have Housing Concerned About Future Housing: No Difficulty Paying Gas/Electric Bills: No Difficulty Paying for Meds: No Currently Unemployed: No Education: High School Diploma/GED Difficulty w/ Childcare or Family Care: No Spiritual care concerns: No Comments At time of signature, I have reviewed and agree with nursing past medical, surgical, social and family history unless otherwise noted. Please see nursing chart for further information. There is no relevant family history pertinent to the presenting complaint Exam Narrative: GENERAL: Well-appearing CHEST: Speaks in full sentences. No respiratory distress. HEART: Regular rate and rhythm. Normal and equal peripheral pulses. EXTREMITIES: left foot has normal strength and sensation, limited range of motion at ankle due to endorses pain with movement. moderate swelling and ecchymosis lateral ankle. no point tenderness. No open wounds, or obvious deformity; alignment normal, pulse palpable and equal bilaterally, skin warm, dry, pink. Capillary refill less than 3 seconds. SKIN: Warm, dry, no rash. NEURO: Alert and oriented x3. PSYCH: Normal mood and affect Course Course Emergency Course: Patient is aware of diagnosis, understands and agrees to treatment plan. Anticipatory guidance given. Patient agrees to follow-up as directed and is aware of reasons to seek care at the emergency department. Portions of this record may have been created with voice recognition software Level of Care: Express Care Visit Vital Signs Vital signs: Vital Signs Pulse Rate 89 04/05/24 10:42 Respiratory Rate 18 04/05/24 10:42 Blood Pressure 114/62 04/05/24 10:42 Pulse Oximetry 100 04/05/24 10:42 Oxygen Delivery Room Air 04/05/24 10:42 Pulse Rate 89 04/05/24 10:42 Respiratory Rate 18 04/05/24 10:42 Blood Pressure 114/62 04/05/24 10:42 Pulse Oximetry 100 04/05/24 10:42 Oxygen Delivery Room Air 04/05/24 10:42 Reviewed MDM - Extremity Injury (Lower) MDM Narrative Medical decision making narrative: Discussed physical exam findings and x-ray report. Signs and symptoms consistent with sprain. Patient will continue using crutches from home. Param wrap applied.Advised supportive measures and signs/symptoms to go to the ER. Pt is appropriate for outpt treatment and f/u. Differential Diagnosis Differential diagnosis: Likely ankle sprain and strain and ankle fracture Imaging Data Radiologist's impression: Patient: Yasemin Ortiz : 1995 MR#: [id number] Age: 28 Acct:[id number] Loc: [facility] ADM Date: 04/05/24Attending Dr: Ordering Physician: Little Montes APRN Date of Service: 04/05/24 Procedure(s): XR ankle LT min 3V Accession Number(s): [id number] cc: Little Montes APRN; Naman,Elenita Melton~ EXAMINATION: XR ankle LT min 3V DATE: 04/05/2024 10:54 INDICATION: Left ankle pain. Inversion injury. TECHNIQUE: 4 views of left ankle were obtained. COMPARISON: None. FINDINGS: Alignment is normal. No fracture. Joint spaces are normal. There is an enthesophyte at plantar aspect of calcaneal tuberosity. There is ankle soft tissue swelling. IMPRESSION: 1. No fracture. Discharge Plan Discharge Clinical Impression: Ankle sprain and strain Patient Disposition: Home, Self-Care Condition: Stable Instructions: Ankle Sprain (ED) Additional Instructions: Rest and elevate the left leg; bear weight as tolerated. Continue crutches as needed. Avoid running, jumping or excessive walking until pain is resolved. Apply ice 15-20 minute intervals several times a day Keep it wrapped with PARAM or use a soft ankle splint Motrin 800mg every 8 hours, alternate with Tylenol 1000mg every 8 hours as needed Follow up with your primary care provider and air traffic control specialist center Go to the ER for worsening symptoms or concerns Patient Language: Tamaz[place] Prescriptions: New ibuprofen 800 mg tablet 800 mg PO TID PRN (Reason: pain) Qty: 15 0RF Follow-up/Referrals: Libby,Elenita Melton MD [Primary Care Provider] - Time of Disposition: 11:10
== END 2024-04-05 11:15 | disposition home or self-care (01) ==
PROVIDERS: Emergency Provider Nurse Practitioner Family; PCP Family Medicine
DX: S93.402A Sprain of unspecified ligament of left ankle, initial encounter (principal); S96.912A Strain of unspecified muscle and tendon at ankle and foot level, left foot, initial encounter; W10.9XXA Fall (on) (from) unspecified stairs and steps, initial encounter; K21.9 Gastro-esophageal reflux disease without esophagitis
CPT/HCPCS: 73610; 99213; G0463

== ENCOUNTER 2024-04-11 14:19 | Emergency (ER) | payer OTHER, SELFPAY ==
--- NOTE | ~2024-04-11 | XR_ITS ---
XR ankle LT 2V Ordering provider: Kassi Moya APRN History: . pt request for continued pain . Comparison: None. FINDINGS: BONES: Lucency is seen in the posterior tibia which is suggestive of fracture. JOINT SPACES: The ankle mortise is normal. SOFT TISSUES: Soft tissue swelling over the lateral malleolus. IMPRESSION: Highly suggestive fracture in the posterior malleolus. Reviewed, dictated and finalized at location A. VISION PRESENTER
[2024-04-11 15:14] VITALS: BP 116/67; PULSE 83; RESP 16; TEMP 36.9; O2SAT 100
--- NOTE | 2024-04-11 15:23 | ED.LOWEXIN ---
HPI - Extremity Injury (Lower) General Chief Complaint: Extremity Injury, Lower Stated Complaint: Left Ankle Pain Time Seen by Provider: 04/11/24 15:23 Source: patient, RN notes reviewed and old records reviewed Mode of arrival: ambulatory Limitations: no limitations History of Present Illness HPI Narrative: Patient presents with complaints of continued left ankle pain. She reports that she injured the ankle several days ago, was seen at this facility. Reports that she was advised by provider to come back for repeat x-rays if she had continued pain. Patient has not been using her crutches properly. She arrives with only 1 crutch. She denies any re-injury to the affected site. She has not been taking anything for her symptoms. She voices no other concerns or complaints at this time Related Data Allergies Allergy/AdvReac Type Severity Reaction Status Date / Time No Known Allergies Allergy Verified 04/11/24 15:12 Review of Systems Review of Systems: All systems reviewed & are unremarkable except as noted in HPI and below Constitutional: Constitutional: Reports no additional constitutional complaints ENT: Reports system reviewed and no additional complaints, except as documented Cardiovascular: Cardiovascular: Reports no additional cardiovascular complaints Respiratory: Respiratory: Reports no additional respiratory complaints Gastrointestinal: Gastrointestinal: Reports no additional gastrointestinal complaints Musculoskeletal: Musculoskeletal: Reports radiating pain into limb (Left lateral ankle pain radiating up the leg) [facility] Past Medical History Medical History GERD (gastroesophageal reflux disease) Bronchitis Surgical History Surgical History History of laparoscopic appendectomy 09/24/22 No significant past surgical history Family History Family History Other Family history non-contributory Family history unknown Social History Social History Smoking status: Never smoker Second hand tobacco smoke exposure: No Alcohol intake: never Substance use: never Substance use type: does not use Lack of Transportation: No Lack of Food: Never True Current Housing: I Have Housing Concerned About Future Housing: No Difficulty Paying Gas/Electric Bills: No Difficulty Paying for Meds: No Currently Unemployed: No Education: High School Diploma/GED Difficulty w/ Childcare or Family Care: No Spiritual care concerns: No Comments At the time of my signature, I reviewed and agree with the nursing past medical, surgical, social, and family history. There is no relevant family history pertinent to the patient complaint. Exam Const: General: cooperative, no acute distress, alert and awake Orientation/consciousness: oriented to person, oriented to place and oriented to time HENMT: Head: normal to inspection Resp: Effort & Inspection: normal respiratory effort and able to speak in complete sentences Auscultation: clear to auscultation bilaterally, no crackles, no rales, no rhonchi and no wheezes Cardio: Palpation: normal PMI Rate: regular rate Rhythm: regular rhythm Heart sounds: S1 normal heart sound present and S2 normal heart sound present Neuro: General: oriented to person, oriented to place and oriented to time Cranial nerves: Yes CN's II-XII intact bilaterally Extrem: Left lower extremity: normal capillary refill and ankle Details: tenderness Location: of the lateral malleolus, swelling Details: laterally and normal ROM; no warmth Psych: Appearance: grossly normal Thought process: Normal thought process present Insight: Good insight present (Psych) Judgement: Good judgement present (Psych) Course Course Level of Care: Express Care Visit Vital Signs Vital signs: Vital Signs Temperature 98.4 F 04/11/24 15:14 Pulse Rate 83 04/11/24 15:14 Respiratory Rate 16 04/11/24 15:14 Blood Pressure 116/67 04/11/24 15:14 Pulse Oximetry 100 04/11/24 15:14 Oxygen Delivery Room Air 04/11/24 15:14 Temperature 98.4 F 04/11/24 15:14 Pulse Rate 83 04/11/24 15:14 Respiratory Rate 16 04/11/24 15:14 Blood Pressure 116/67 04/11/24 15:14 Pulse Oximetry 100 04/11/24 15:14 Oxygen Delivery Room Air 04/11/24 15:14 Reviewed MDM - Extremity Injury (Lower) MDM Narrative Medical decision making narrative: Repeat x-ray suggestive of fracture. Short-leg Ortho Glass placed. Follow-up with ortho. Importance of nonweightbearing emphasized to the patient. She does report that she has both crutches interposition, but has not been using them. She is encouraged to begin using them as directed Differential Diagnosis Differential diagnosis: Likely ankle sprain and strain and ankle fracture Medical Records Attestation: I reviewed the patient's medical records. Imaging Data My impression: Posterior tibial fracture Radiologist's impression: [facility] [address] [place] [address] XRay Report Signed Patient: Yasemin Ortiz : 1995 MR#: [id number] Age: 28 Acct:[id number] Loc: [facility] ADM Date: 04/11/24Attending Dr: Ordering Physician: Kassi Moya FNP Date of Service: 04/11/24 Procedure(s): XR ankle LT 2V Accession Number(s): [id number] cc: Kassi Moya FNP; Naman,Elenita Melton~ XR ankle LT 2V Ordering provider: Kassi Moya APRN History: . pt request for continued pain . Comparison: None. FINDINGS: BONES: Lucency is seen in the posterior tibia which is suggestive of fracture. JOINT SPACES: The ankle mortise is normal. SOFT TISSUES: Soft tissue swelling over the lateral malleolus. IMPRESSION: Highly suggestive fracture in the posterior malleolus. Reviewed, dictated and finalized at location A. [employer] DIRECT[employer] Dictated By: Christo Salcido MD 04/11/24 1603 Signed By: <Electronically signed by Christo Salcido MD in OV> 04/11/24 1606 Discharge Plan Discharge Clinical Impression: Ankle fracture Qualifiers: Encounter type: initial encounter Fracture type: closed Laterality: left Qualified Code(s): S82.892A - Other fracture of left lower leg, initial encounter for closed fracture Patient Disposition: Home, Self-Care Condition: Stable Instructions: Antibiotic Form, Ankle Fracture (ED) Additional Instructions: Nonweightbearing, use crutches at all times. Follow up with retail service specialist without fail. Emergency department for new or worse symptoms Patient Language: [place] Prescriptions: No Action ibuprofen 800 mg tablet 800 mg PO TID PRN (Reason: pain) Qty: 15 0RF Follow-up/Referrals: Cy Castellano MD [Physician] - (Ankle fracture) Naman,Elenita Melton MD [Primary Care Provider] - Time of Disposition: 16:27
== END 2024-04-11 17:10 | disposition home or self-care (01) ==
PROVIDERS: Emergency Provider Nurse Practitioner Family; PCP Family Medicine
DX: S82.892A Other fracture of left lower leg, initial encounter for closed fracture (principal); X58.XXXA Exposure to other specified factors, initial encounter; K21.9 Gastro-esophageal reflux disease without esophagitis
CPT/HCPCS: 29515; 73600; 99214; G0463